=== PATIENT | female | born 1935 | race Caucasian/White ===

== ENCOUNTER → 2017-01-29 | Outpatient (CLI) | payer MEDICARE ==
[2017-01-29 15:19] LABS: Blood Urea Nitrogen 19 mg/dL (7-17); Non-African American GFR(MDRD) >60 (>60 ml/min/1.73 sqM)
--- NOTE | 2017-01-29 16:31 | CT ---
EXAMINATION TYPE: CT urogram wo/w con DATE OF EXAM: 01/29/2017 4:13 PM HISTORY: gross hematuria, hx of bladder ca CT DLP: 1209.8mGycm Automated Exposure Control for Dose Reduction was Utilized. CONTRAST: CT scan of the abdomen and pelvis is performed without oral and without and with IV Contrast, patient injected with 100 mL of Omnipaque 300. Urogram protocol with Three-D reconstructed images created on independent workstation and reviewed. COMPARISON: None. FINDINGS: KUB: There is focal cortical defect probable scar involving the lateral portion of the right kidney u pper to mid pole level on coronal image 91 series 20 for reference. There is additional lobulation yarbrough spected scarring involving lower pole right kidney. At this level there are 2-3 calcific foci identif ied suspicious for calculi versus dystrophic calcifications. No left-sided renal calculi are present. There is symmetric cortical medullary uptake and excretion from both kidneys with asymmetric mild ri ght-sided pyelocaliectasis. This is up to level 10 mm calculus in the proximal right ureter on axial image 36 series 8 and coronal image 80 series 17. There is fairly satisfactory opacification of bilat eral ureters without additional obstructing mass or calculus identified. No suspicious mass or wall t hickening is seen in the urinary bladder. LUNG BASES: Linear scarring or atelectasis centrally in the right lung base is present. There is patc hy atelectasis or consolidation abutting the major fissure in the lingula. LIVER/GB: Cholecystectomy clips are noted. PANCREAS: No significant abnormality is seen. SPLEEN: No significant abnormality is seen. ADRENALS: Slight low dense thickening to left adrenal glands felt to reflect benign hyperplasia. BOWEL: There are diverticula in the sigmoid colon. There is no CT evidence for acute diverticulitis. UTERUS/ADNEXA: No gross abnormality seen. LYMPH NODES: No greater than 1cm abdominal or pelvic lymph nodes are appreciated. OSSEOUS STRUCTURES: There is multilevel moderate to severe disc space narrowing with vacuum disc phen omenon. There is sclerosis and moderate to severe spurring at L1-L2 level. There is multilevel additi onal sclerosis and subchondral cystic change. There is grade 1 anterolisthesis of L4 on L5. There is hemangioma at T11 vertebral body level noted. OTHER: There is moderate calcified atherosclerotic change of the abdominal aorta extending into pelvi c branch vessels. IMPRESSION: There is 10 mm calculus in the proximal right ureter causing mild right-sided hydronephro sis but not delayed excretion from the right kidney.
== END | disposition home or self-care (01) ==
LOC: RADCTMAIN 14:36
PROVIDERS: ATTEND Urology
DX: N13.2 Hydronephrosis with renal and ureteral calculous obstruction (principal); Z85.51 Personal history of malignant neoplasm of bladder
CPT/HCPCS: 82565; 84520; 74178; 36415; 74400; Q9967

== ENCOUNTER → 2018-08-21 | Outpatient (CLI) | payer MEDICARE ==
--- NOTE | 2018-08-21 18:34 | CT ---
EXAMINATION TYPE: CT abdomen pelvis wo/w con DATE OF EXAM: 08/21/2018 HISTORY: Right lower quadrant pain, hematuria CT DLP: 1651mGycm Automated Exposure Control for Dose Reduction was Utilized. CONTRAST: CT scan of the abdomen and pelvis is performed prior to and after the administration of intravenous c ontrast, patient injected with 100 ml mL of Isovue 300. COMPARISON: 01/29/2017. FINDINGS: LUNG BASES: Chronic lingular atelectasis and/or scarring is seen. LIVER/GB: No significant abnormality is appreciated. Gallbladder surgically absent.01 PANCREAS: No significant abnormality is seen. SPLEEN: No splenomegaly. ADRENALS: Right adrenal gland is unremarkable. The previously seen slight thickening in the left adre nal gland remains and is again favored to represent benign adrenal gland hyperplasia. KIDNEYS: Retracted calcified scarring of the right lateral upper pole is redemonstrated. This is erickson lar to the prior 01/29/2017. Focal scarring of the lower pole is also seen with areas of full-thicknes s cortical thinning. Simple appearing stable left renal cyst emanates from the posterior lower pole. No new renal calculi are seen. There is chronic uroepithelial thickening of the right collecting system on series 6 image 32 through 50. Again there is pyelocaliectasis. However there is no evidence of obstruction as contrast is excr eted on delayed imaging. Fluid fluid level is seen on the last image of series 10 (47). This could re late to debris within the right collecting system. No new renal masses appreciated of either kidney. BOWEL: There is a small hiatal hernia present. UTERUS/ADNEXA: No gross abnormality seen. LYMPH NODES: No greater than 1cm abdominal or pelvic lymph nodes are appreciated. OSSEOUS STRUCTURES: There is multilevel malalignment of the lumbar spine with grade 1 retrolisthesis of L1 on L2 and L2 on L3 as well as grade 1 anterolisthesis of L4 on L5. Vertebral body hemangioma se en of T11 demonstrating the stripe sign. Multilevel endplate sclerosis is noted. No suspicious osseou s lesions are seen.. OTHER: Again there is moderate atherosclerosis of the abdominal aorta and its branches. IMPRESSION: 1. Chronic right uroepithelial thickening of the renal pelvis and proximal to mid ureter. Findings co uld be on the basis of inflammatory etiology and are unlikely to be of infectious etiology given pricing analyst nicity. With a history of urinary bladder cancer surveillance is recommended or direct visualization to exclude uroepithelial carcinoma. 2. Chronic multifocal scarring deformity of the right kidney with pyelocaliectasis. No new renal mass .
== END | disposition home or self-care (01) ==
LOC: RADCTMAIN 10:41
PROVIDERS: ATTEND Urology
DX: N13.30 Unspecified hydronephrosis (principal); N28.89 Other specified disorders of kidney and ureter; R31.9 Hematuria, unspecified; Z87.442 Personal history of urinary calculi; Z85.51 Personal history of malignant neoplasm of bladder; Z88.2 Allergy status to sulfonamides
CPT/HCPCS: 82565; 84520; 74178; 36415; Q9967

== ENCOUNTER → 2019-03-03 | Outpatient (CLI) | payer MEDICARE ==
--- NOTE | 2019-03-04 07:05 | CT ---
EXAMINATION TYPE: CT urogram wo/w con DATE OF EXAM: 03/03/2019 COMPARISON: 08/21/2018 and 01/29/2017 HISTORY: 83-year-old female gross hematuria X 3 weeks, history of stones TECHNIQUE: Contiguous axial scanning of the abdomen and pelvis performed without and with IV Contrast , patient injected with 100 mL of Isovue 300. Delayed images through the kidneys and bladder were obt ained. Coronal/sagittal reconstructions performed. 3-D reconstructions generated on a dedicated [employer] workstation. CT DLP: 1013.2 mGycm Automated exposure control for dose reduction was used. FINDINGS: Heart normal size without pericardial effusion. Partially visualized 6 mm right basilar pulmonary nodule, stable for just over a year compatible with a benign etiology. Bands of atelectasis at the peripheral left base. No pleural effusion. Small hiatal hernia. No focal liver lesion. Portal venous system is patent. Stable mild prominence of the bile ducts statu s post cholecystectomy. Stable mild diffuse thickening of the left adrenal gland without discrete nodularity. Right adrenal g land, spleen, and pancreas appear within normal limits. No dilated small bowel, free fluid, or free air. Some prominent fluid-filled small bowel loops in the lower abdomen and pelvis and some scattered liqu id stool within the colon. There may be mild circumferential wall thickening at the lower descending colon which may correlated clinically with patient's symptoms. No mesenteric or retroperitoneal lymphadenopathy. Moderate atherosclerotic calcifications within the abdominal aorta and iliac arteries. With regards to the left kidney, there is a stable exophytic 1.5 cm cortical lesion from the posterio r aspect that shows no significant postcontrast enhancement and was present previously compatible wit h a cyst. No suspicious renal lesion. No hydronephrosis and no abnormal filling defect within the col lecting system or left ureter. With regards to the right kidney, there is redemonstrated multifocal cortical defects in the upper an d lower poles. 5 mm nonobstructive right upper pole renal calculus is demonstrated. Similar overall mild right-sided pelvicaliectasis with mild urothelial thickening. There is only mini mal asymmetric delayed excretion of contrast from the right kidney. There is focal narrowing of a 1.6 cm long segment of the upper right ureter. Similar mild circumferen tial urothelial thickening in this region. The ureter immediately beyond this narrowing becomes sligh tly patulous before tapering to normal caliber. Remainder of the ureter has a normal appearance. The majority of the bladder except for the anterior most portion is opacified and shows no suspicious filling defect. Bladder partially distended. Uterus and right ovary are visualized. Left ovary not clearly delineated from adjacent bowel loops. No abnormal fluid collection in the pelvis or pelvic lymphadenopathy. Bones: Degenerative changes of the hips. Additional multilevel advanced degenerative changes througho ut the lumbar spine with multilevel spondylolistheses and Baastrup's disease. IMPRESSION: 1 REDEMONSTRATED MULTIFOCAL CORTICAL SCARRING WITHIN THE UPPER AND LOWER POLE OF THE RIGHT KIDNEY. 5 MM NONOBSTRUCTIVE RIGHT UPPER POLE RENAL CALCULUS. 2. SIMILAR MILD RIGHT-SIDED PELVICALIECTASIS WITH PERSISTENT MILD UROTHELIAL THICKENING OF THE COLLEC TING SYSTEM AND UPPERMOST RIGHT URETER LIKELY ON A CHRONIC POSTINFLAMMATORY BASIS. 3. A 1.6 CM LONG SEGMENT OF NARROWING INVOLVING THE UPPER RIGHT URETER SEEMS TO BE NEW. POSTINFLAMMAT ORY STRICTURE IS FAVORED OVER NEOPLASM GIVEN THE LACK OF ABNORMAL SOFT TISSUE THICKENING. FURTHER COR RELATION WITH URINE CYTOLOGY AND POSSIBLE DIRECT INSPECTION RECOMMENDED. 4. VERY SLIGHT ASYMMETRIC DELAY IN EXCRETION OF CONTRAST FROM THE RIGHT KIDNEY. THIS COULD BE SECONDA RY TO A DECREASE IN OVERALL FUNCTION OF THE RIGHT KIDNEY VERSUS A MILD RELATIVE OBSTRUCTION AT THE UR ETERAL NARROWING MENTIONED ABOVE. 5. MOST OF THE BLADDER IS OPACIFIED ON THE DELAYED PHASE AND SHOWS NO SUSPICIOUS LESION. ONLY A SMALL PORTION OF THE ANTERIOR WALL IS NOT ASSESSED. 6. SOME PROMINENT FLUID-FILLED SMALL BOWEL LOOPS IN THE LOWER ABDOMEN AND PELVIS AND SOME SCATTERED L IQUID STOOL WITHIN THE COLON. THERE MAY ALSO BE MILD WALL THICKENING IN THE MID TO LOWER DESCENDING C OLON. CORRELATE FOR ANY POTENTIAL SYMPTOMS OF ENTEROCOLITIS. 7. SMALL HIATAL HERNIA.
== END | disposition home or self-care (01) ==
LOC: RADCTMAIN 16:00
PROVIDERS: ATTEND Urology
DX: N20.0 Calculus of kidney (principal); K44.9 Diaphragmatic hernia without obstruction or gangrene; N28.89 Other specified disorders of kidney and ureter; K63.89 Other specified diseases of intestine; Z88.2 Allergy status to sulfonamides
CPT/HCPCS: 82565; 84520; 74178; 36415; 74400; Q9967

== ENCOUNTER 2020-05-17 08:41 | Inpatient (IN) | payer MEDICARE ==
[2020-05-17] MEDS ORDERED: SODIUM CHLORIDE 0.9% 500 ML 500 ML IV STA (09:28)
[2020-05-17] MEDS ORDERED: SODIUM CHLORIDE 0.9% 1,000 ML IV STA (09:28)
--- NOTE | 2020-05-17 09:40 | ED ---
Weakness HPI - General Chief complaint: Weakness Stated complaint: Weakness,aches Time Seen by Provider: 05/17/20 08:56 Source: patient, family, RN notes reviewed Mode of arrival: wheelchair Limitations: physical limitation - History of Present Illness Initial comments: This is a 85-year-old female history of a right ureteral neoplasm who was just seen by her doctor on the of this month which his stent placement and radiation treatment who states she started developing some nonspecific generalized weakness yesterday with a fever dizziness nausea. The temperature 100.4 and some shakes and generalized fatigue. She is a chronic smoker she stat es she has a smoker's cough but nothing new with respect to this no earache sore throat right now she states she's been drinking and eating less. No overt abdominal pain at this time no diarrhea. No dysuria no hematuria. She is on Macrobid that she's been on for the past 2 days with no change MD Complaint: generalized weakness - Related Data Home Medications Medication Instructions Recorded Confirmed HYDROcodone/APAP 7.5-325MG [[place] 1 tab PO BID 05/17/20 05/17/20 7.5-325] Ibuprofen [Motrin Ib] 200 mg PO DAILY PRN 05/17/20 05/17/20 Nitrofurantoin Macrocrystal 100 mg PO BID 05/17/20 05/17/20 [Nitrofurantoin] Potassium Chloride [Klor-Con 10] 10 meq PO DAILY 05/17/20 05/17/20 Sertraline HCl [Zoloft] 100 mg PO DAILY 05/17/20 05/17/20 Simvastatin [Zocor] 20 mg PO DAILY 05/17/20 05/17/20 Triamterene/Hydrochlorothiazid 1 tab PO DAILY 05/17/20 05/17/20 [Triamterene-Hctz 37.5-25 mg Tb] Allergies Allergy/AdvReac Type Severity Reaction Status Date / Time No Known Allergies Allergy Verified 05/17/20 10:50 Review of Systems ROS Statement: Those systems with pertinent positive or pertinent negative responses have been documented in the HPI. ROS Other: All systems not noted in ROS Statement are negative. Past Medical History Past Medical History: Dementia Additional Past Medical History / Comment(s): Ureter cancer, radiation tx, kidne y stones History of Any Multi-Drug Resistant Organisms: None Reported Past Surgical History: Cholecystectomy Past Psychological History: No Psychological Hx Reported Smoking Status: Current every day smoker Past Alcohol Use History: None Reported Past Drug Use History: None Reported General Exam - General Exam Comments Initial Comments: This is a well-developed well-nourished awake alert oriented 3 female Limitations: physical limitation General appearance: alert, in no apparent distress Head exam: Present: atraumatic, normocephalic, normal inspection Eye exam: Present: normal appearance, PERRL, EOMI. Absent: scleral icterus, conjunctival injection, periorbital swelling ENT exam: Present: mucous membranes dry Neck exam: Present: normal inspection. Absent: tenderness, meningismus, lymphadenopathy Respiratory exam: Present: decreased breath sounds. Absent: respiratory distress, wheezes, rales, rhonchi, stridor Cardiovascular Exam: Present: regular rate, normal rhythm, normal heart sounds. Absent: systolic murmur, diastolic murmur, rubs, gallop, clicks GI/Abdominal exam: Present: soft, normal bowel sounds. Absent: distended, tenderness, guarding, rebound, rigid Extremities exam: Present: normal inspection, full ROM, normal capillary refill. Absent: tenderness, pedal edema, joint swelling, calf tenderness Back exam: Present: normal inspection Neurological exam: Present: alert, oriented X3, CN II-XII intact Psychiatric exam: Present: normal affect, normal mood Skin exam: Present: warm, dry, intact, normal color. Absent: rash Course Vital Signs 05/17/20 05/17/20 05/17/20 08:46 08:51 09:51 Temperature 99 F Pulse Rate 93 79 Respiratory 18 18 18 Rate Blood Pressure 96/52 104/63 O2 Sat by Pulse 94 L 97 Oximetry 05/17/20 05/17/20 05/17/20 10:00 11:00 12:00 Temperature 97.9 F Pulse Rate 79 82 Respiratory 18 18 18 Rate Blood Pressure 104/63 111/57 O2 Sat by Pulse 97 97 97 Oximetry EKG Findings - EKG Results: EKG: interpreted by ROBERT, sinus rhythm (Sinus rhythm of 89. Interval 1:30 QRS duration 76 QT/QTC 388/472) Medical Decision Making - Medical Decision Making I did discuss findings with patient and her son was present. Patient does have evidence COPD exacerbation she is still a smoker she also has left lower lobe infiltrate. I did discuss case with Dr. Brown. Also Dr. Benitez will be notified of the admission. - Lab Data Result diagrams: 05/17/20 09:39 05/17/20 09:39 Lab Results 05/17/20 05/17/20 05/17/20 Range/Units 09:39 09:39 09:39 WBC 14.6 H (3.8-10.6) k/uL RBC 4.09 (3.80-5.40) m/uL Hgb 12.3 (11.4-16.0) gm/dL Hct 37.2 (34.0-46.0) % MCV 90.9 (80.0-100.0) fL MCH 30.0 (25.0-35.0) pg MCHC 33.0 (31.0-37.0) g/dL RDW 12.8 (11.5-15.5) % Plt Count 239 (150-450) k/uL Neutrophils % 92 % Lymphocytes % 1 % Monocytes % 5 % Eosinophils % 1 % Basophils % 1 % Neutrophils # 13.3 H (1.3-7.7) k/uL Lymphocytes # 0.1 L (1.0-4.8) k/uL Monocytes # 0.7 (0-1.0) k/uL Eosinophils # 0.1 (0-0.7) k/uL Basophils # 0.2 (0-0.2) k/uL PT 10.7 (9.0-12.0) sec INR 1.0 (<1.2) APTT 26.6 (22.0-30.0) sec Sodium 133 L (137-145) mmol/L Potassium 3.2 L (3.5-5.1) mmol/L Chloride 100 (98-107) mmol/L Carbon Dioxide 24 (22-30) mmol/L Anion Gap 9 mmol/L BUN 14 (7-17) mg/dL Creatinine 0.90 (0.52-1.04) mg/dL Est GFR (CKD-EPI)AfAm 67 (>60 ml/min/1.73 sqM) Est GFR (CKD-EPI)NonAf 58 (>60 ml/min/1.73 sqM) Glucose 123 H (74-99) mg/dL Plasma Lactic Acid [place] (0.7-2.0) mmol/L Calcium 8.8 (8.4-10.2) mg/dL Magnesium 1.8 (1.6-2.3) mg/dL Total Bilirubin 0.6 (0.2-1.3) mg/dL AST 22 (14-36) U/L ALT 13 (4-34) U/L Alkaline Phosphatase 82 (38-126) U/L Creatine Kinase 143 H (30-135) U/L Troponin I (0.000-0.034) ng/mL NT-Pro-B Natriuret Pep pg/mL Total Protein 6.5 (6.3-8.2) g/dL Albumin 4.0 (3.5-5.0) g/dL Urine Color Urine Appearance (Clear) Urine pH (5.0-8.0) Ur Specific [place] (1.001-1.035) Urine Protein (Negative) Urine Glucose (UA) (Negative) Urine Ketones (Negative) Urine Blood (Negative) Urine Nitrite (Negative) Urine Bilirubin (Negative) Urine Urobilinogen (<2.0) mg/dL Ur Leukocyte Esterase (Negative) Urine RBC (0-5) /hpf Urine WBC (0-5) /hpf Ur Squamous Epith Cells (0-4) /hpf Urine Bacteria (None) /hpf Urine Mucus (None) /hpf 05/17/20 05/17/20 05/17/20 Range/Units 09:39 09:39 09:39 WBC (3.8-10.6) k/uL RBC (3.80-5.40) m/uL Hgb (11.4-16.0) gm/dL Hct (34.0-46.0) % MCV (80.0-100.0) fL MCH (25.0-35.0) pg MCHC (31.0-37.0) g/dL RDW (11.5-15.5) % Plt Count (150-450) k/uL Neutrophils % % Lymphocytes % % Monocytes % % Eosinophils % % Basophils % % Neutrophils # (1.3-7.7) k/uL Lymphocytes # (1.0-4.8) k/uL Monocytes # (0-1.0) k/uL Eosinophils # (0-0.7) k/uL Basophils # (0-0.2) k/uL PT (9.0-12.0) sec INR (<1.2) APTT (22.0-30.0) sec Sodium (137-145) mmol/L Potassium (3.5-5.1) mmol/L Chloride (98-107) mmol/L Carbon Dioxide (22-30) mmol/L Anion Gap mmol/L BUN (7-17) mg/dL Creatinine (0.52-1.04) mg/dL Est GFR (CKD-EPI)AfAm (>60 ml/min/1.73 sqM) Est GFR (CKD-EPI)NonAf (>60 ml/min/1.73 sqM) Glucose (74-99) mg/dL Plasma Lactic Acid [place] 1.0 (0.7-2.0) mmol/L Calcium (8.4-10.2) mg/dL Magnesium (1.6-2.3) mg/dL Total Bilirubin (0.2-1.3) mg/dL AST (14-36) U/L ALT (4-34) U/L Alkaline Phosphatase (38-126) U/L Creatine Kinase (30-135) U/L Troponin I 0.024 (0.000-0.034) ng/mL NT-Pro-B Natriuret Pep 872 pg/mL Total Protein (6.3-8.2) g/dL Albumin (3.5-5.0) g/dL Urine Color Urine Appearance (Clear) Urine pH (5.0-8.0) Ur Specific [place] (1.001-1.035) Urine Protein (Negative) Urine Glucose (UA) (Negative) Urine Ketones (Negative) Urine Blood (Negative) Urine Nitrite (Negative) Urine Bilirubin (Negative) Urine Urobilinogen (<2.0) mg/dL Ur Leukocyte Esterase (Negative) Urine RBC (0-5) /hpf Urine WBC (0-5) /hpf Ur Squamous Epith Cells (0-4) /hpf Urine Bacteria (None) /hpf Urine Mucus (None) /hpf 05/17/20 Range/Units 09:46 WBC (3.8-10.6) k/uL RBC (3.80-5.40) m/uL Hgb (11.4-16.0) gm/dL Hct (34.0-46.0) % MCV (80.0-100.0) fL MCH (25.0-35.0) pg MCHC (31.0-37.0) g/dL RDW (11.5-15.5) % Plt Count (150-450) k/uL Neutrophils % % Lymphocytes % % Monocytes % % Eosinophils % % Basophils % % Neutrophils # (1.3-7.7) k/uL Lymphocytes # (1.0-4.8) k/uL Monocytes # (0-1.0) k/uL Eosinophils # (0-0.7) k/uL Basophils # (0-0.2) k/uL PT (9.0-12.0) sec INR (<1.2) APTT (22.0-30.0) sec Sodium (137-145) mmol/L Potassium (3.5-5.1) mmol/L Chloride (98-107) mmol/L Carbon Dioxide (22-30) mmol/L Anion Gap mmol/L BUN (7-17) mg/dL Creatinine (0.52-1.04) mg/dL Est GFR (CKD-EPI)AfAm (>60 ml/min/1.73 sqM) Est GFR (CKD-EPI)NonAf (>60 ml/min/1.73 sqM) Glucose (74-99) mg/dL Plasma Lactic Acid [place] (0.7-2.0) mmol/L Calcium (8.4-10.2) mg/dL Magnesium (1.6-2.3) mg/dL Total Bilirubin (0.2-1.3) mg/dL AST (14-36) U/L ALT (4-34) U/L Alkaline Phosphatase (38-126) U/L Creatine Kinase (30-135) U/L Troponin I (0.000-0.034) ng/mL NT-Pro-B Natriuret Pep pg/mL Total Protein (6.3-8.2) g/dL Albumin (3.5-5.0) g/dL Urine Color Yellow Urine Appearance Clear (Clear) Urine pH 6.0 (5.0-8.0) Ur Specific [place] 1.018 (1.001-1.035) Urine Protein 1+ H (Negative) Urine Glucose (UA) Negative (Negative) Urine Ketones Negative (Negative) Urine Blood Moderate H (Negative) Urine Nitrite Negative (Negative) Urine Bilirubin Negative (Negative) Urine Urobilinogen <2.0 (<2.0) mg/dL Ur Leukocyte Esterase Large H (Negative) Urine RBC 95 H (0-5) /hpf Urine WBC 65 H (0-5) /hpf Ur Squamous Epith Cells 1 (0-4) /hpf Urine Bacteria Rare H (None) /hpf Urine Mucus Few H (None) /hpf - Radiology Data Radiology results: report reviewed (I did review the imaging and report evidence a left lower lobe pneumonia), image reviewed Disposition Clinical Impression: Left lower lobe pneumonia, COPD exacerbation, Smoking, Primary cancer of right ureter Disposition: ADMITTED IP TO THIS HOSP Condition: Fair Referrals: Jane Bartlett MD [Primary Care Provider] - 1-2 days
[2020-05-17 09:57] LABS: Basophils # (A) 0.2 k/uL (0-0.2); Basophils % (A) 1 %; Eosinophils # (A) 0.1 k/uL (0-0.7); Eosinophils % (A) 1 %; HCT 37.2 % (34.0-46.0); HGB 12.3 gm/dL (11.4-16.0); Lymphocytes # (A) 0.1 k/uL (1.0-4.8); Lymphocytes % (A) 1 %; MCV 90.9 fL (80.0-100.0); Mean Platelet Volume 7.4; Monocytes # (A) 0.7 k/uL (0-1.0); Monocytes % (A) 5 %; Neutrophils # (A) 13.3 k/uL (1.3-7.7); Neutrophils % (A) 92 %; Platelet Count 239 k/uL (150-450); RBC 4.09 m/uL (3.80-5.40); RDW 12.8 % (11.5-15.5); WBC 14.6 k/uL (3.8-10.6)
[2020-05-17 10:01] LABS: Appearance,Urine Clear (Clear); Bacteria,Urine Rare /hpf; Bilirubin,Urine Negative (Negative); Blood,Urine Moderate (Negative); Color,Urine Yellow; Glucose,Urine (UA) Negative (Negative); Ketones,Urine Negative (Negative); Leukocyte Esterase,Urine Large (Negative); Mucus,Urine Few /hpf; Nitrite,Urine Negative (Negative); Protein,Urine 1+ (Negative); RBC,Urine 95 /hpf (0-5); Specific Gravity,Urine 1.018 (1.001-1.035); Squamous Epithelial Cell,Urine 1 /hpf (0-4); Urobilinogen,Urine <2.0 mg/dL (<2.0); WBC,Urine 65 /hpf (0-5)
[2020-05-17 10:06] LABS: Calcium 8.8 mg/dL (8.4-10.2); Magnesium 1.8 mg/dL (1.6-2.3); Potassium 3.2 mmol/L (3.5-5.1); Total Bilirubin 0.6 mg/dL (0.2-1.3); Total Protein 6.5 g/dL (6.3-8.2)
[2020-05-17 10:10] LABS: Partial Thromboplastin Time 26.6 sec (22.0-30.0); Prothrombin Time 10.7 sec (9.0-12.0)
--- NOTE | 2020-05-17 10:21 | XR ---
EXAMINATION TYPE: XR chest 2V DATE OF EXAM: 05/17/2020 COMPARISON: Chest x-ray 11/29/2011 HISTORY: Weakness and fever, abnormal chest x-ray TECHNIQUE: Frontal and lateral views of the chest are obtained. FINDINGS: There is a wedge-shaped area of increased attenuation present in the lingula. Prominent mike ng volumes suggest underlying COPD. Interstitium is increased. Aorta is dense. Heart is stable. Pulmo nary vascularity and adrienne not significantly changed accounting for differences in technique. No evide nt pneumothorax or pleural effusion. IMPRESSION: Correlate for atelectasis versus pneumonia, follow-up to resolution is recommended.
[2020-05-17] MEDS ORDERED: PNEUMONIA PROTOCOL UTILIZED 1 EACH MISC PO PRN (12:28)
[2020-05-17] MEDS ORDERED: AZITHROMYCIN 500 MG in SODIUM CHLORIDE 0.9% 250 ML IVPB STA (12:28)
[2020-05-17] MEDS ORDERED: IBUPROFEN 200 MG TAB PO PRN (12:35)
[2020-05-17] MEDS ORDERED: PNEUMOCOCCAL VACC-PNEUMOVAX 23 25 MCG/0.5 ML VIAL IM ONE (14:03)
[2020-05-17] MEDS: IPRATROPIUM-ALBUTEROL 3 ML NEB INHALATION SCH ×2 (15:13→19:58)
[2020-05-17] MEDS ORDERED: HYDROcodone/APAP 7.5-325MG 1 EACH TAB PO PRN (21:00)
[2020-05-17] MEDS ORDERED: IPRATROPIUM-ALBUTEROL 3 ML NEB INHALATION PRN (21:01)
[2020-05-18 07:27] LABS: Calcium 8.2 mg/dL (8.4-10.2); Potassium 3.7 mmol/L (3.5-5.1)
[2020-05-18 07:46] LABS: Basophils % (A) 0 %; Eosinophils # (A) 0.3 k/uL (0-0.7); Eosinophils % (A) 4 %; HCT 35.1 % (34.0-46.0); HGB 11.7 gm/dL (11.4-16.0); Lymphocytes # (A) 0.5 k/uL (1.0-4.8); Lymphocytes % (A) 8 %; MCHC 33.3 g/dL (31.0-37.0); MCV 93.2 fL (80.0-100.0); Mean Platelet Volume 7.7; Monocytes # (A) 0.5 k/uL (0-1.0); Monocytes % (A) 8 %; Neutrophils # (A) 5.3 k/uL (1.3-7.7); Neutrophils % (A) 78 %; Platelet Count 202 k/uL (150-450); RBC 3.77 m/uL (3.80-5.40); RDW 12.8 % (11.5-15.5); WBC 6.7 k/uL (3.8-10.6)
[2020-05-18] MEDS: IPRATROPIUM-ALBUTEROL 3 ML NEB INHALATION SCH ×4 (07:54→20:24)
[2020-05-18] MEDS: HEPARIN SODIUM,PORCINE 5,000 UNIT/ML 1 ML VIAL SQ SCH ×2 (08:12→16:19)
--- NOTE | 2020-05-18 09:25 | XR ---
EXAMINATION TYPE: XR chest 2V DATE OF EXAM: 05/18/2020 CLINICAL HISTORY: Pneumonia TECHNIQUE: Frontal and lateral views of the chest are obtained. COMPARISON: Chest radiograph 05/17/2020 FINDINGS: The cardiomediastinal silhouette is within normal limits for size. There is interstitial c oarsened markings redemonstrated. There is a patchy area of opacity region of the lingula not signifi cantly changed. No pleural effusion or pneumothorax seen. The osseous structures are intact. IMPRESSION: Unchanged patchy opacity in the region of the lingula.
[2020-05-18] MEDS: ATORVASTATIN 10 MG TAB PO SCH (10:42)
[2020-05-18] MEDS: SERTRALINE 100 MG TAB PO SCH (10:42)
[2020-05-18] MEDS: POTASSIUM CHLORIDE ER 10 MEQ TAB.ER.PRT PO SCH (10:42)
--- NOTE | 2020-05-18 10:49 | P.HPIM ---
History of Present Illness H&P Date: 05/17/20 Chief Complaint: generalized weakness and fatigue Patient is a 85-year-old female with a known history of dementia, hearing disorder/deafness, hypertension, hyperlipidemia and recent right ureteral neoplasm with stenting/radiation treatments last 1 on 05/08/2020 and nephroli thiasis as well as currently everyday smoker presents to the hospital with generalized weakness along with fever and dizziness and nausea since yesterday. T-max was 100.1 and patient was having chills and generalized fatigue. Denied any complaints of chest pain. Patient does have chronic cough without any sputum production or recent change in frequency. Patient is currently everyday smoker. Denied any abdominal pain. No dysuria or hematuria. Patient has been taking Macrobid for the past 2 days without improvement in symptoms. Chest x-ray showed correlate for atelectasis versus pneumonia. Follow-up to resolution is recommended. EKG showed normal sinus rhythm Laboratory data WBC 14.6, hemoglobin 12.3, platelets 239 Sodium 133, potassium 3.2, chloride 100, BUN 14 and creatinine 0.9 CK 143 troponin 0 0.024 and BNP level is 872 Urinalysis showed moderate blood large leukoesterase with WBCs 9 6500 RBCs 95 squamous epithelial cells 1 Patient was tachycardic on admission with T-max of 99.7 at admission. Review of Systems Constitutional: patient does have generalized weakness, fatigue, fever and chills at home.s. Abdomen: Patient denied nausea vomiting and diarrhea and abdominal pain. Cardiovascular: Patient denies any chest pain or short of breath no palpitations. Respiratory: patient denied any cough is from production. No shortness of breath Neurologic: Patient denied any numbness or tingling headache. Musculoskeletal: Patient denies any complaints of joint swelling or deformity. Skin: Negative Psychiatric: Negative Endocrine: No heat or cold intolerance. No recent weight gain. Genitourinary: No dysuria or hematuria. All other 14 point ROS negative except the above Past Medical History Past Medical History: Dementia, Hearing Disorder / Deafness, Hyperlipidemia, Hy pertension Additional Past Medical History / Comment(s): R ureteral neoplasm with stentings/radiation treatments with last radiation tx 05/08/20, nephrolithiasis with surgery and pt passed on her own, nephritis, UTIs, chronic low back pain, torn R rotator cuff with limited ROM, bilateral tinnitis, pt/son do not recall diagnosis of COPD/bronchitis/pneumonia as documented in old medical record. History of Any Multi-Drug Resistant Organisms: None Reported Past Surgical History: Appendectomy Additional Past Surgical History / Comment(s): Cystoscopies/R ureteral stents, lithotripsy, bilateral cataract removals. Past Anesthesia/Blood Transfusion Reactions: Postoperative Nausea & Vomiting (PONV) Additional Past Anesthesia/Blood Transfusion Reaction / Comment(s): Post op nausea and pain Smoking Status: Current every day smoker - Past Family History Father Family Medical History: Coronary Artery Disease (CAD), CVA/TIA Mother Family Medical History: No Reported History Additional Family Medical History / Comment(s): Mother was healthy and lived until 89yrs. Medications and Allergies Home Medications Medication Instructions Recorded Confirmed Type HYDROcodone/APAP 7.5-325MG [[place] 1 tab PO BID 05/17/20 05/17/20 History 7.5-325] Ibuprofen [Motrin Ib] 200 mg PO DAILY PRN 05/17/20 05/17/20 History Nitrofurantoin Macrocrystal 100 mg PO BID 05/17/20 05/17/20 History [Nitrofurantoin] Potassium Chloride [Klor-Con 10] 10 meq PO DAILY 05/17/20 05/17/20 History Sertraline HCl [Zoloft] 100 mg PO DAILY 05/17/20 05/17/20 History Simvastatin [Zocor] 20 mg PO DAILY 05/17/20 05/17/20 History Triamterene/Hydrochlorothiazid 1 tab PO DAILY 05/17/20 05/17/20 History [Triamterene-Hctz 37.5-25 mg Tb] Allergies Allergy/AdvReac Type Severity Reaction Status Date / Time No Known Allergies Allergy Verified 05/17/20 10:50 Physical Exam Vitals: Vital Signs Temp Pulse Pulse Resp BP BP Pulse Ox 05/17/20 15:49 16 05/17/20 15:25 72 16 05/17/20 15:17 68 16 95 05/17/20 14:25 85 18 05/17/20 14:15 99.7 F H 85 18 105/49 96 05/17/20 13:00 80 18 132/62 97 05/17/20 12:00 97.9 F 82 18 111/57 97 05/17/20 11:00 18 97 05/17/20 10:00 79 18 104/63 97 05/17/20 09:51 79 18 104/63 97 05/17/20 08:51 18 05/17/20 08:46 99 F 93 18 96/52 94 L Intake and Output 05/17/20 05/17/20 05/17/20 06:59 14:59 22:59 Intake Total 1830 Balance 1830 Intake: Intake, IV Titration 1350 Amount Azithromycin 500 mg In 250 Sodium Chloride 0.9% 250 ml @ 250 mls/hr IVPB ONCE [facility] Rx#:[id number] Sodium Chloride 0.9% 1, 600 000 ml @ 130 mls/hr IV . Q7H42M [facility] Rx#:[id number] Sodium Chloride 0.9% 500 500 ml 500 ml @ 999 mls/hr IV .Q31M [facility] Rx#:[id number] Oral 480 Other: Voiding Method Bedside Commode Bedside Commode # Voids 3 Weight 56.699 kg PHYSICAL EXAMINATION: Patient is lying in the bed comfortably, no acute distress, awake alert and oriented.lethargic and weak.. HEENT: Normocephalic. Neck is supple. Pupils reactive. Nostrils clear. Oral cavity is moist. Ears reveal no drainage. Neck reveals no JVD, carotid bruits, or thyromegaly. CHEST EXAMINATION: Trachea is central. Symmetrical expansion.bibasilar diminished air entry. No wheezing. Lung fraser clear to auscultation and percussion. CARDIAC: Normal S1, S2 with no gallops. No murmurs ABDOMEN: Soft. Bowel sounds normal. No organomegaly. No abdominal bruits. Extremities: reveal no edema. No clubbing or cyanosis Neurologically awake, alert, oriented x3 with well-coordinated movements. No focal deficits noted Skin: No rash or skin lesions. Psychiatric: Coperative. Nonsuicidal Musculoskeletal: No joint swelling or deformity. Normal range of motion. Results CBC & Chem 7: 05/18/20 06:19 05/18/20 06:19 Labs: Abnormal Lab Results - Last 24 Hours (Table) 05/17/20 05/17/20 05/17/20 Range/Units 09:39 09:39 09:46 WBC 14.6 H (3.8-10.6) k/uL Neutrophils # 13.3 H (1.3-7.7) k/uL Lymphocytes # 0.1 L (1.0-4.8) k/uL Sodium 133 L (137-145) mmol/L Potassium 3.2 L (3.5-5.1) mmol/L Glucose 123 H (74-99) mg/dL Creatine Kinase 143 H (30-135) U/L Urine Protein 1+ H (Negative) Urine Blood Moderate H (Negative) Ur Leukocyte Esterase Large H (Negative) Urine RBC 95 H (0-5) /hpf Urine WBC 65 H (0-5) /hpf Urine Bacteria Rare H (None) /hpf Urine Mucus Few H (None) /hpf Thrombosis Risk Factor Assmnt - DVT/VTE Prophylaxis DVT/VTE Prophylaxis: Pharmacologic Prophylaxis ordered - Choose All That Apply Any of the Below Risk Factors Present?: Yes Each Factor Represents 1 point: Abnormal pulmonary function (COPD), Sepsis (< 1month) Other Risk Factors: Yes Each Risk Factor Represents 2 Points: Malignancy Each Risk Factor Represents 3 Points: Age 75 years or older Other congenital or acquired thrombophilia - If yes, enter type in comment: No Thrombosis Risk Factor Assessment Total Risk Factor Score: 7 Thrombosis Risk Factor Assessment Level: High Risk Assessment and Plan Assessment: Acute urinary tract infection with history of recent right ureteral stenting. Possible lingular pneumonia Sepsis secondary to urinary tract infection Failed outpatient therapy with Macrobid Right ureteral neoplasm with stenting/radiation treatments last radiation on 05/08/2020 Hypokalemia and hypovolemic hyponatremia Ongoing nicotine addiction Generalized weakness and fatigue secondary to dehydration and volume depletion and infection Hearing disorder/deafness Hypertension Hyperlipidemia Dementia DVT prophylaxis with heparin subcu Plan: Patient will be continued on antibiotic in the form of ceftriaxone and azithromycin. Gentle hydration. Follow-up urine cultures and blood cultures continue home medications and symptomatic management. Follow-up repeat CBC and BMP tomorrow. Smoking patient has been counseled. Further recommendations b ased on the clinical course. Time with Patient: Greater than 30
[2020-05-18] MEDS: BENZOCAINE/MENTHOL LOZENG 1 EACH LOZENGE MUCOUS MEM PRN (11:44)
[2020-05-18] MEDS: AZITHROMYCIN 500 MG TAB PO SCH (11:44)
[2020-05-18] MEDS: TRIAMTERENE-HCTZ 37.5-25MG 1 EACH TAB PO SCH (11:44)
--- NOTE | 2020-05-19 00:08 | P.PN ---
Subjective Progress Note Date: 05/18/20 Principal diagnosis: Acute urinary tract infection Possible lingular pneumonia Generalized weakness and fatigue Patient is a 85-year-old female with a known history of dementia, hearing disorder/deafness, hypertension, hyperlipidemia and recent right ureteral neoplasm with stenting/radiation treatments last 1 on 05/08/2020 and nephrolithiasis as well as currently everyday smoker presents to the hospital with generalized weakness along with fever and dizziness and nausea since yesterday. T-max was 100.1 and patient was having chills and generalized fa tigue. Denied any complaints of chest pain. Patient does have chronic cough without any sputum production or recent change in frequency. Patient is currently everyday smoker. Denied any abdominal pain. No dysuria or hematuria. Patient has been taking Macrobid for the past 2 days without improvement in symptoms. Chest x-ray showed correlate for atelectasis versus pneumonia. Follow-up to resolution is recommended. EKG showed normal sinus rhythm Laboratory data WBC 14.6, hemoglobin 12.3, platelets 239 Sodium 133, potassium 3.2, chloride 100, BUN 14 and creatinine 0.9 CK 143 troponin 0 0.024 and BNP level is 872 Urinalysis showed moderate blood large leukoesterase with WBCs 9 6500 RBCs 95 squamous epithelial cells 1 Patient was tachycardic on admission with T-max of 99.7 at admission. 05/18/2020 Patient is currently sitting in the chair comfortably. No complaints of chest pain or shortness of breath. Currently tolerating oral diet. Urine culture is pending. WBC count is 6.7, hemoglobin 11.7 and potassium level is 3.7. Discussed with her son at bedside in detail. Current medications reviewed. Objective - Vital Signs Vital signs: Vital Signs Temp 98.4 F 05/18/20 15:36 Pulse 73 05/18/20 20:36 Resp 20 05/18/20 15:36 BP 109/55 05/18/20 15:36 Pulse Ox 95 05/18/20 15:36 Intake & Output 05/18/20 05/18/20 05/19/20 06:59 18:59 06:59 Intake Total 1880 450 Balance 1880 450 Intake: IV 50 cefTRIAXone 1 gm In 50 Sodium Chloride 0.9% 50 ml @ 100 mls/hr IVPB Q24HR [facility] Rx#:[id number] Intake, IV Titration 1480 400 Amount Sodium Chloride 0.9% 1, 1480 400 000 ml @ 130 mls/hr IV . Q7H42M [facility] Rx#:[id number] Oral 400 Other: Voiding Method Bedside Commode # Voids 1 - Exam PHYSICAL EXAMINATION: Patient is lying in the bed comfortably, no acute distress, awake alert and oriented.lethargic and weak.. HEENT: Normocephalic. Neck is supple. Pupils reactive. Nostrils clear. Oral cavity is moist. Ears reveal no drainage. Neck reveals no JVD, carotid bruits, or thyromegaly. CHEST EXAMINATION: Trachea is central. Symmetrical expansion.bibasilar di minished air entry. No wheezing. Lung fraser clear to auscultation and percussion. CARDIAC: Normal S1, S2 with no gallops. No murmurs ABDOMEN: Soft. Bowel sounds normal. No organomegaly. No abdominal bruits. Extremities: reveal no edema. No clubbing or cyanosis Neurologically awake, alert, oriented x3 with well-coordinated movements. No focal deficits noted Skin: No rash or skin lesions. Psychiatric: Coperative. Nonsuicidal Musculoskeletal: No joint swelling or deformity. Normal range of motion. - Labs CBC & Chem 7: 05/18/20 06:19 05/18/20 06:19 Labs: Abnormal Lab Results - Last 24 Hours (Table) 05/18/20 05/18/20 Range/Units 06:19 06:19 RBC 3.77 L (3.80-5.40) m/uL Lymphocytes # 0.5 L (1.0-4.8) k/uL Calcium 8.2 L (8.4-10.2) mg/dL Microbiology - Last 24 Hours (Table) 05/17/20 09:46 Urine Culture - Final Urine,Voided 05/17/20 09:39 Blood Culture - Preliminary Blood No Growth after 24 hours Assessment and Plan Assessment: Acute urinary tract infection with history of recent right ureteral stenting. Possible lingular pneumonia Sepsis secondary to urinary tract infection Failed outpatient therapy with Macrobid Right ureteral neoplasm with stenting/radiation treatments last radiation on 05/08/2020 Hypokalemia and hypovolemic hyponatremia Ongoing nicotine addiction Generalized weakness and fatigue secondary to dehydration and volume depletion and infection Hearing disorder/deafness Hypertension Hyperlipidemia Dementia DVT prophylaxis with heparin subcu Plan: Patient will be continued on antibiotic in the form of ceftriaxone and azithromycin. Incentive spirometry. Titrate oxygen to room air Gentle hydration. Follow-up urine cultures and blood cultures continue home medications and symptomatic management. Smoking patient has been counseled. Further recommendations based on the clinical course. Time with Patient: Greater than 30
[2020-05-19] MEDS: HEPARIN SODIUM,PORCINE 5,000 UNIT/ML 1 ML VIAL SQ SCH ×4 (00:42→23:11)
[2020-05-19] MEDS: BENZOCAINE/MENTHOL LOZENG 1 EACH LOZENGE MUCOUS MEM PRN ×3 (02:15→19:47)
[2020-05-19] MEDS: ATORVASTATIN 10 MG TAB PO SCH (07:43)
[2020-05-19] MEDS: TRIAMTERENE-HCTZ 37.5-25MG 1 EACH TAB PO SCH (07:43)
[2020-05-19] MEDS: SERTRALINE 100 MG TAB PO SCH (07:43)
[2020-05-19] MEDS: AZITHROMYCIN 500 MG TAB PO SCH (07:43)
[2020-05-19] MEDS: POTASSIUM CHLORIDE ER 10 MEQ TAB.ER.PRT PO SCH (07:43)
[2020-05-19] MEDS: IPRATROPIUM-ALBUTEROL 3 ML NEB INHALATION SCH ×4 (08:02→18:52)
[2020-05-19 14:51] VITALS: RESP 16
[2020-05-19] MEDS ORDERED: MELATONIN 5 MG TABLET PO SCH (21:00)
[2020-05-20 04:26] VITALS: TEMP 98.3
[2020-05-20] MEDS: BENZOCAINE/MENTHOL LOZENG 1 EACH LOZENGE MUCOUS MEM PRN (06:15)
[2020-05-20] MEDS: POTASSIUM CHLORIDE ER 10 MEQ TAB.ER.PRT PO SCH (08:00)
[2020-05-20] MEDS: SERTRALINE 100 MG TAB PO SCH (08:00)
[2020-05-20] MEDS: AZITHROMYCIN 500 MG TAB PO SCH (08:00)
[2020-05-20] MEDS: ATORVASTATIN 10 MG TAB PO SCH (08:00)
[2020-05-20] MEDS: TRIAMTERENE-HCTZ 37.5-25MG 1 EACH TAB PO SCH (08:00)
[2020-05-20] MEDS: HEPARIN SODIUM,PORCINE 5,000 UNIT/ML 1 ML VIAL SQ SCH (08:00)
[2020-05-20 08:01] VITALS: BP 112/68
[2020-05-20] MEDS: IPRATROPIUM-ALBUTEROL 3 ML NEB INHALATION SCH ×2 (08:09→11:15)
[2020-05-20] MEDS ORDERED: guaiFENesin 600 MG TABLET.ER PO PRN (09:12)
[2020-05-20 11:26] VITALS: PULSE 77
== END 2020-05-20 13:44 | disposition home health service (06) | DRG 871 ==
LOC: SUPCPDRO 08:41 → EC 08:41 → 4SSUR 12:28
PROVIDERS: ADMIT Internal Medicine; ATTEND Internal Medicine
DX: A41.9 Sepsis, unspecified organism (principal); J18.9 Pneumonia, unspecified organism; N39.0 Urinary tract infection, site not specified; J44.0 Chronic obstructive pulmonary disease with (acute) lower respiratory infection; J44.1 Chronic obstructive pulmonary disease with (acute) exacerbation; E87.1 Hypo-osmolality and hyponatremia; C66.1 Malignant neoplasm of right ureter; I10 Essential (primary) hypertension; H91.90 Unspecified hearing loss, unspecified ear; F17.210 Nicotine dependence, cigarettes, uncomplicated; E87.6 Hypokalemia; F03.90 Unspecified dementia, unspecified severity, without behavioral disturbance, psychotic disturbance, mood disturbance, and anxiety; Z20.828 Contact with and (suspected) exposure to other viral communicable diseases; E78.5 Hyperlipidemia, unspecified; E86.0 Dehydration; E86.1 Hypovolemia; Z79.899 Other long term (current) drug therapy; Z82.49 Family history of ischemic heart disease and other diseases of the circulatory system; Z82.3 Family history of stroke; Z87.442 Personal history of urinary calculi; Z92.3 Personal history of irradiation; R31.9 Hematuria, unspecified; Z79.891 Long term (current) use of opiate analgesic; Z87.440 Personal history of urinary (tract) infections; M54.5 Low back pain; G89.29 Other chronic pain; Z98.42 Cataract extraction status, left eye; Z98.41 Cataract extraction status, right eye
CPT/HCPCS: 36415; 71046; 80048; 80053; 81001; 82550; 83605; 83735; 83880; 84484; 85025; 85610; 85730; 87040; 87086; 90732; 93005; 94640; 94760; 96360; 96361; 99285

== ENCOUNTER 2021-03-16 19:00 | Emergency (ER) | payer MEDICARE ==
[2021-03-16 19:08] VITALS: TEMP 97.7
[2021-03-16] MEDS ORDERED: SODIUM CHLORIDE 0.9% 1,000 ML IV STA (19:24)
[2021-03-16] MEDS ORDERED: MORPHINE SULFATE 4 MG/ML SYRINGE IV STA (19:24)
[2021-03-16] MEDS ORDERED: ONDANSETRON 4 MG/2 ML VIAL IVP STA (19:24)
[2021-03-16 19:36] LABS: Basophils % (A) 0 %; Eosinophils # (A) 0.1 k/uL (0-0.7); Eosinophils % (A) 1 %; HCT 37.5 % (34.0-46.0); Lymphocytes # (A) 1.4 k/uL (1.0-4.8); Lymphocytes % (A) 17 %; MCH 31.3 pg (25.0-35.0); MCHC 34.8 g/dL (31.0-37.0); Monocytes # (A) 0.4 k/uL (0-1.0); Monocytes % (A) 5 %; Neutrophils # (A) 6.2 k/uL (1.3-7.7); Neutrophils % (A) 76 %; Platelet Count 196 k/uL (150-450); RBC 4.16 m/uL (3.80-5.40); WBC 8.2 k/uL (3.8-10.6)
[2021-03-16 19:44] LABS: Albumin 4.1 g/dL (3.5-5.0); Calcium 9.1 mg/dL (8.4-10.2); Total Bilirubin 0.3 mg/dL (0.2-1.3); Total Protein 6.4 g/dL (6.3-8.2)
--- NOTE | 2021-03-16 19:57 | ED ---
Abdominal Pain HPI - General Chief Complaint: Abdominal Pain Stated Complaint: Groin pain Time Seen by Provider: 03/16/21 19:19 Source: patient, EMS, RN notes reviewed Mode of arrival: EMS Limitations: no limitations - History of Present Illness Initial Comments: Patient is a 85-year-old female that presents to emergency room complaining of right-sided abdominal pain starting after a cystoscopy procedure today. She notes that the pain is right middle quadrant. She notes the pain started shortly after her cystoscopy. She notes that she's been having pain for approximately an hour. She notes that she is visiting 10 out of 10 pain and asking for pain medication the pain go away. She stated that they drained her bladder during the procedure, she does have the sensation to go the bathroom but is not sure if she will be given a urine sample. She denied any chest pain shortness of breath headache nausea vomiting diarrhea constipation fever fatigue chills hematuria dysuria. - Related Data Home Medications Medication Instructions Recorded Confirmed HYDROcodone/APAP 7.5-325MG [[place] 1 tab PO BID 05/17/20 03/16/21 7.5-325] Potassium Chloride [Klor-Con 10] 10 meq PO DAILY 05/17/20 03/16/21 Sertraline HCl [Zoloft] 100 mg PO DAILY 05/17/20 03/16/21 Simvastatin [Zocor] 20 mg PO DAILY 05/17/20 03/16/21 Triamterene/Hydrochlorothiazid 1 tab PO DAILY 05/17/20 03/16/21 [Triamterene-Hctz 37.5-25 mg Tb] Allergies Allergy/AdvReac Type Severity Reaction Status Date / Time No Known Allergies Allergy Verified 03/16/21 19:39 Review of Systems ROS Statement: Those systems with pertinent positive or pertinent negative responses have been documented in the HPI. ROS Other: All systems not noted in ROS Statement are negative. 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 History of Any Multi-Drug Resistant Organisms: None Reported Past Surgical History: Appendectomy Additional Past Surgical History / Comment(s): Cystoscopies/R ureteral stents, lithotripsy, bilateral cataract removals. Past Anesthesia/Blood Transfusion Reactions: Postoperative Nausea & Vomiting (PONV) Additional Past Anesthesia/Blood Transfusion Reaction / Comment(s): Post op naus ea and pain Past Psychological History: Anxiety Smoking Status: Current every day smoker, Former smoker Past Alcohol Use History: None Reported Past Drug Use History: None Reported - Past Family History Father Family Medical History: Coronary Artery Disease (CAD), CVA/TIA Mother Family Medical History: No Reported History Additional Family Medical History / Comment(s): Mother was healthy and lived until 89yrs. General Exam Limitations: no limitations General appearance: alert, in no apparent distress, in distress (Due to pain) Head exam: Present: atraumatic, normocephalic, normal inspection Eye exam: Present: normal appearance, PERRL, EOMI. Absent: scleral icterus, conjunctival injection, periorbital swelling Neck exam: Present: normal inspection Respiratory exam: Present: normal lung sounds bilaterally. Absent: respiratory distress, wheezes, rales, rhonchi, stridor Cardiovascular Exam: Present: regular rate, normal rhythm, normal heart sounds. Absent: systolic murmur, diastolic murmur, rubs, gallop, clicks GI/Abdominal exam: Present: soft, tenderness (Right middle quadrant), normal bowel sounds. Absent: distended, guarding, rebound, rigid Extremities exam: Present: normal inspection, full ROM, normal capillary refill. Absent: tenderness, pedal edema, joint swelling, calf tenderness Neurological exam: Present: alert, oriented X3, CN II-XII intact Psychiatric exam: Present: normal affect, normal mood Skin exam: Present: warm, dry, intact, normal color. Absent: rash Course Vital Signs 03/16/21 03/16/21 19:02 20:54 Temperature 97.7 F Pulse Rate 69 82 Respiratory 20 16 Rate Blood Pressure 147/75 138/63 O2 Sat by Pulse 97 95 Oximetry Medical Decision Making - Medical Decision Making 85-year-old female with right middle quadrant pain starting shortly after cystoscopy. Labs, 1 and normal saline, 4mg morphine, CT of the abdomen and pelvis ordered. Labs unremarkable, CT negative for any acute process. Upon reevaluation patient states that she is feeling much better and is ready to go home. Case discussed with Dr. Sommers, patient discharge home with follow-up to primary care and urologist. - Lab Data Result diagrams: 03/16/21 19:32 03/16/21 19:32 Lab Results 03/16/21 03/16/21 03/16/21 Range/Units 19:32 19:32 19:32 WBC 8.2 (3.8-10.6) k/uL RBC 4.16 (3.80-5.40) m/uL Hgb 13.0 (11.4-16.0) gm/dL Hct 37.5 (34.0-46.0) % MCV 90.0 (80.0-100.0) fL MCH 31.3 (25.0-35.0) pg MCHC 34.8 (31.0-37.0) g/dL RDW 13.0 (11.5-15.5) % Plt Count 196 (150-450) k/uL MPV 7.0 Neutrophils % 76 % Lymphocytes % 17 % Monocytes % 5 % Eosinophils % 1 % Basophils % 0 % Neutrophils # 6.2 (1.3-7.7) k/uL Lymphocytes # 1.4 (1.0-4.8) k/uL Monocytes # 0.4 (0-1.0) k/uL Eosinophils # 0.1 (0-0.7) k/uL Basophils # 0.0 (0-0.2) k/uL Sodium 136 L (137-145) mmol/L Potassium 4.0 (3.5-5.1) mmol/L Chloride 102 (98-107) mmol/L Carbon Dioxide 25 (22-30) mmol/L Anion Gap 9 mmol/L BUN 17 (7-17) mg/dL Creatinine 1.04 (0.52-1.04) mg/dL Est GFR (CKD-EPI)AfAm 56 (>60 ml/min/1.73 sqM) Est GFR (CKD-EPI)NonAf 49 (>60 ml/min/1.73 sqM) Glucose 128 H (74-99) mg/dL Plasma Lactic Acid Asa 2.1 H* (0.7-2.0) mmol/L Calcium 9.1 (8.4-10.2) mg/dL Total Bilirubin 0.3 (0.2-1.3) mg/dL AST 22 (14-36) U/L ALT 11 (4-34) U/L Alkaline Phosphatase 71 (38-126) U/L Total Protein 6.4 (6.3-8.2) g/dL Albumin 4.1 (3.5-5.0) g/dL Amylase 62 (30-110) U/L Lipase 83 (23-300) U/L - Radiology Data Radiology results: report reviewed, image reviewed CT of the abdomen and pelvis: There is hydronephrosis and hydroureter ureter with periureteral edema and left-sided perinephric edema which is new compared to old computed tomography scan. No obstructing calculus seen. This could relate to pyelonephritis. Disposition Clinical Impression: Abdominal pain Disposition: HOME SELF-CARE Condition: Stable Instructions (If sedation given, give patient instructions): Abdominal Pain (ED) Additional Instructions: Please return to the Emergency Department if symptoms worsen or any other concerns. Continue at home medications as prescribed. Follow-up with primary care and urologist as scheduled. Is patient prescribed a controlled substance at d/c from ED?: No Referrals: Jane Bartlett MD [Primary Care Provider] - 1-2 days Time of Disposition: 21:21
--- NOTE | 2021-03-16 20:17 | CT ---
EXAMINATION TYPE: CT abdomen pelvis wo con DATE OF EXAM: 03/16/2021 COMPARISON: 03/03/2019 HISTORY: Abdominal pain CT DLP: 579.4 mGycm Automated exposure control for dose reduction was used. Images obtained from the diaphragm to the floor the pelvis with no contrast. Lung bases are clear of infiltrate. There is no pleural effusion. There is no pericardial effusion. T here is small hiatal hernia. There are clips from cholecystectomy. Liver and spleen are intact. The bile ducts are not dilated. Th ere is no pancreatic mass. There is no evidence of adrenal mass. Kidneys have normal size. There is bilateral hydronephrosis. Th ere is cortical thinning upper pole right kidney with calcification. There is mild lateral hydrourete r. There is left side. The nephric edema. No ureteral calculus seen. Bladder distends smoothly. There is no inguinal hernia. There is no free fluid in the pelvis. Lumbar vertebra have fairly normal alignment. There is degenerative disc space narrowing throughout t he lumbar spine. There is no compression fracture. There is a mild degenerative first-degree L4-5 spo ndylolisthesis. The bony pelvis is intact. The hip joints are intact. There is mild bilateral periure teral edema. There is no retroperitoneal adenopathy. Abdominal aorta is atheromatous. There is 2 cm c ortical cyst lower pole left kidney. There is no mesenteric edema. There is no ascites or free air. There is no bowel obstruction. IMPRESSION: There is hydronephrosis and hydroureter with periureteral edema and left side perinephric edema which is new compared to old CT scan. No obstructing calculus seen. This could relate to pyelonephritis.
[2021-03-16 20:57] VITALS: BP 138/63; PULSE 82; RESP 16
== END 2021-03-16 21:40 | disposition home or self-care (01) ==
LOC: EC 19:00
DX: R10.31 Right lower quadrant pain (principal); E78.5 Hyperlipidemia, unspecified; I10 Essential (primary) hypertension; F03.90 Unspecified dementia, unspecified severity, without behavioral disturbance, psychotic disturbance, mood disturbance, and anxiety; F41.9 Anxiety disorder, unspecified; F17.200 Nicotine dependence, unspecified, uncomplicated; Z87.442 Personal history of urinary calculi; Z98.890 Other specified postprocedural states
CPT/HCPCS: 80053; 82150; 83605; 83690; 85025; 74176; 99284; 96374; J2270

== ENCOUNTER 2021-04-26 18:25 | Inpatient (IN) | payer MEDICARE ==
[2021-04-26] MEDS ORDERED: SODIUM CHLORIDE 0.9% 500 ML 500 ML IV STA (19:14)
[2021-04-26 19:32] LABS: Basophils % (A) 0 %; Eosinophils # (A) 0.3 k/uL (0-0.7); Eosinophils % (A) 4 %; HCT 33.8 % (34.0-46.0); HGB 11.4 gm/dL (11.4-16.0); Lymphocytes # (A) 0.5 k/uL (1.0-4.8); Lymphocytes % (A) 6 %; MCH 30.3 pg (25.0-35.0); MCHC 33.6 g/dL (31.0-37.0); MCV 90.1 fL (80.0-100.0); Mean Platelet Volume 7.1; Monocytes # (A) 0.3 k/uL (0-1.0); Monocytes % (A) 3 %; Neutrophils # (A) 7.3 k/uL (1.3-7.7); Neutrophils % (A) 84 %; Platelet Count 272 k/uL (150-450); RBC 3.75 m/uL (3.80-5.40); RDW 13.6 % (11.5-15.5); WBC 8.7 k/uL (3.8-10.6)
--- NOTE | 2021-04-26 19:37 | ED ---
General Adult HPI - General Chief complaint: Recheck/Abnormal Lab/Rx Stated complaint: COTY Time Seen by Provider: 04/26/21 19:03 Source: patient, family Mode of arrival: wheelchair Limitations: physical limitation - History of Present Illness Initial comments: 86 year-old female patient with history of bladder and ureter cancer presents to the emergency department for evaluation of generalized weakness, shortness of breath, and dizziness. Patient went to have her infusion a few days ago and was found to have a UTI. They started her on Macrobid. Over the next couple days she developed the above symptoms and the urologist (Dr. Gagnon) office thought it may have been a reaction to the medication so they told her to stop it. Symptoms seemed to worsen today so they presented here for further evaluation. Patient states she has no appetite. Did have an episode of vomiting yesterday. Denies any fever or chills. States she gets short of breath especially with activity. Denies any cough or congestion. Denies focal weakness states it is general. St ates she did have some chest pain when she got here but it resolved. States shows has back pain, there has been no change. Patient denies any recent rash, cough, abdominal pain, diarrhea, constipation, numbness, tingling, headache, visual changes, or any other complaints. - Related Data Home Medications Medication Instructions Recorded Confirmed HYDROcodone/APAP 7.5-325MG [[place] 1 tab PO BID 05/17/20 03/16/21 7.5-325] Potassium Chloride [Klor-Con 10] 10 meq PO DAILY 05/17/20 03/16/21 Sertraline HCl [Zoloft] 100 mg PO DAILY 05/17/20 03/16/21 Simvastatin [Zocor] 20 mg PO DAILY 05/17/20 03/16/21 Triamterene/Hydrochlorothiazid 1 tab PO DAILY 05/17/20 03/16/21 [Triamterene-Hctz 37.5-25 mg Tb] Aspirin EC [Ecotrin] 325 mg PO DAILY 04/26/21 04/26/21 Ibuprofen [Motrin Ib] 200 mg PO Q8H PRN 04/26/21 04/26/21 Multivitamins, Thera [Multivitamin 1 tab PO DAILY 04/26/21 04/26/21 (formulary)] Potassium Gluconate 99 mg PO DAILY 04/26/21 04/26/21 Allergies Allergy/AdvReac Type Severity Reaction Status Date / Time Sulfa (Sulfonamide Allergy Unknown Verified 04/26/21 21:44 Antibiotics) Review of Systems ROS Statement: Those systems with pertinent positive or pertinent negative responses have been documented in the HPI. ROS Other: All systems not noted in ROS Statement are negative. 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 History of Any Multi-Drug Resistant Organisms: None Reported Past Surgical History: Appendectomy Additional Past Surgical History / Comment(s): Cystoscopies/R ureteral stents, lithotripsy, bilateral cataract removals. Past Anesthesia/Blood Transfusion Reactions: Postoperative Nausea & Vomiting (PONV) Additional Past Anesthesia/Blood Transfusion Reaction / Comment(s): Post op nausea and pain Past Psychological History: Anxiety Smoking Status: Former smoker Past Alcohol Use History: None Reported Past Drug Use History: None Reported - Past Family History Father Family Medical History: Coronary Artery Disease (CAD), CVA/TIA Mother Family Medical History: No Reported History Additional Family Medical History / Comment(s): Mother was healthy and lived until 89yrs. General Exam Limitations: physical limitation General appearance: alert, in no apparent distress, other (This is a well- developed, well-nourished elderly female patient in no acute distress. Vital signs upon presentation are temperature 100.2F, pulse 89, respirations 18, blood pressure 117/61, pulse ox 95% on room air.) Eye exam: Present: normal appearance, PERRL, EOMI. Absent: scleral icterus, conjunctival injection, periorbital swelling ENT exam: Present: normal exam, normal oropharynx, mucous membranes moist Respiratory exam: Present: normal lung sounds bilaterally, other (Tachypnea). Absent: respiratory distress, wheezes, rales, rhonchi, stridor Cardiovascular Exam: Present: regular rate, normal rhythm, normal heart sounds. Absent: systolic murmur, diastolic murmur, rubs, gallop, clicks GI/Abdominal exam: Present: soft, normal bowel sounds. Absent: distended, tenderness, guarding, rebound, rigid Neurological exam: Present: alert, oriented X3, CN II-XII intact Psychiatric exam: Present: normal affect, normal mood Skin exam: Present: warm, dry, intact, normal color. Absent: rash Course Vital Signs 04/26/21 04/26/21 04/26/21 18:27 19:07 20:53 Temperature 98.5 F 100.0 F H 98.8 F Pulse Rate 89 87 Respiratory 18 20 Rate Blood Pressure 117/61 136/57 O2 Sat by Pulse 95 93 L Oximetry EKG Findings - EKG Comments: EKG Findings:: EKG obtained at 1839 shows normal sinus rhythm with a ventricular rate of 88, MO interval 134, QRS duration 74, QT 406, QTc 491. No evidence of ST elevation or depression. Medical Decision Making - Medical Decision Making 86-year-old female patient presented for evaluation of weakness, dyspnea, and dizziness. Did have an episode of chest pain upon arrival which did resolve. She is being treated outpatient for urinary tract infection with Macrobid when she started having symptoms. Physical examination did reveal soft nontender abdomen. Lungs are clear to auscultation. EKG showed sinus rhythm. Labs reviewed and did reveal normal white blood cell count at 8.7. Potassium is 3.0, magnesium 2.1, troponin 0.0-8. Urinalysis did show cloudy appearance with trace protein, moderate blood, large leukocyte esterase, 23 red blood cells, greater than 182 white blood cells, few bacteria, and rare mucous. We will admit to the hospital for serial troponins. IV antibiotics for UTI, and further evaluation by cardiology. I did discuss findings, results, and plan with the patient and her son, they're both agreeable. My attending is Dr. Nina. - Lab Data Result diagrams: 04/26/21 19:22 04/26/21 19:22 Lab Results 04/26/21 04/26/21 04/26/21 Range/Units 19:22 19:22 19:22 WBC 8.7 (3.8-10.6) k/uL RBC 3.75 L (3.80-5.40) m/uL Hgb 11.4 (11.4-16.0) gm/dL Hct 33.8 L (34.0-46.0) % MCV 90.1 (80.0-100.0) fL MCH 30.3 (25.0-35.0) pg MCHC 33.6 (31.0-37.0) g/dL RDW 13.6 (11.5-15.5) % Plt Count 272 (150-450) k/uL MPV 7.1 Neutrophils % 84 % Lymphocytes % 6 % Monocytes % 3 % Eosinophils % 4 % Basophils % 0 % Neutrophils # 7.3 (1.3-7.7) k/uL Lymphocytes # 0.5 L (1.0-4.8) k/uL Monocytes # 0.3 (0-1.0) k/uL Eosinophils # 0.3 (0-0.7) k/uL Basophils # 0.0 (0-0.2) k/uL PT 9.7 (9.0-12.0) sec INR 0.9 (<1.2) APTT 24.9 (22.0-30.0) sec Sodium 135 L (137-145) mmol/L Potassium 3.0 L (3.5-5.1) mmol/L Chloride 97 L (98-107) mmol/L Carbon Dioxide 28 (22-30) mmol/L Anion Gap 10 mmol/L BUN 27 H (7-17) mg/dL Creatinine 0.93 (0.52-1.04) mg/dL Est GFR (CKD-EPI)AfAm 64 (>60 ml/min/1.73 sqM) Est GFR (CKD-EPI)NonAf 55 (>60 ml/min/1.73 sqM) Glucose 112 H (74-99) mg/dL Plasma Lactic Acid [place] (0.7-2.0) mmol/L Calcium 9.0 (8.4-10.2) mg/dL Magnesium 2.1 (1.6-2.3) mg/dL Total Bilirubin 0.3 (0.2-1.3) mg/dL AST 17 (14-36) U/L ALT 13 (4-34) U/L Alkaline Phosphatase 80 (38-126) U/L Troponin I (0.000-0.034) ng/mL Total Protein 6.4 (6.3-8.2) g/dL Albumin 3.8 (3.5-5.0) g/dL Urine Color Urine Appearance (Clear) Urine pH (5.0-8.0) Ur Specific [place] (1.001-1.035) Urine Protein (Negative) Urine Glucose (UA) (Negative) Urine Ketones (Negative) Urine Blood (Negative) Urine Nitrite (Negative) Urine Bilirubin (Negative) Urine Urobilinogen (<2.0) mg/dL Ur Leukocyte Esterase (Negative) Urine RBC (0-5) /hpf Urine WBC (0-5) /hpf Ur Squamous Epith Cells (0-4) /hpf Urine Bacteria (None) /hpf Hyaline Casts (0-2) /lpf Urine Mucus (None) /hpf 04/26/21 04/26/21 04/26/21 Range/Units 19:22 19:22 20:56 WBC (3.8-10.6) k/uL RBC (3.80-5.40) m/uL Hgb (11.4-16.0) gm/dL Hct (34.0-46.0) % MCV (80.0-100.0) fL MCH (25.0-35.0) pg MCHC (31.0-37.0) g/dL RDW (11.5-15.5) % Plt Count (150-450) k/uL MPV Neutrophils % % Lymphocytes % % Monocytes % % Eosinophils % % Basophils % % Neutrophils # (1.3-7.7) k/uL Lymphocytes # (1.0-4.8) k/uL Monocytes # (0-1.0) k/uL Eosinophils # (0-0.7) k/uL Basophils # (0-0.2) k/uL PT (9.0-12.0) sec INR (<1.2) APTT (22.0-30.0) sec Sodium (137-145) mmol/L Potassium (3.5-5.1) mmol/L Chloride (98-107) mmol/L Carbon Dioxide (22-30) mmol/L Anion Gap mmol/L BUN (7-17) mg/dL Creatinine (0.52-1.04) mg/dL Est GFR (CKD-EPI)AfAm (>60 ml/min/1.73 sqM) Est GFR (CKD-EPI)NonAf (>60 ml/min/1.73 sqM) Glucose (74-99) mg/dL Plasma Lactic Acid [place] 1.0 (0.7-2.0) mmol/L Calcium (8.4-10.2) mg/dL Magnesium (1.6-2.3) mg/dL Total Bilirubin (0.2-1.3) mg/dL AST (14-36) U/L ALT (4-34) U/L Alkaline Phosphatase (38-126) U/L Troponin I 0.028 (0.000-0.034) ng/mL Total Protein (6.3-8.2) g/dL Albumin (3.5-5.0) g/dL Urine Color Yellow Urine Appearance Cloudy H (Clear) Urine pH 5.5 (5.0-8.0) Ur Specific [place] 1.013 (1.001-1.035) Urine Protein Trace H (Negative) Urine Glucose (UA) Negative (Negative) Urine Ketones Negative (Negative) Urine Blood Moderate H (Negative) Urine Nitrite Negative (Negative) Urine Bilirubin Negative (Negative) Urine Urobilinogen <2.0 (<2.0) mg/dL Ur Leukocyte Esterase Large H (Negative) Urine RBC 23 H (0-5) /hpf Urine WBC >182 H (0-5) /hpf Ur Squamous Epith Cells <1 (0-4) /hpf Urine Bacteria Few H (None) /hpf Hyaline Casts 1 (0-2) /lpf Urine Mucus Rare H (None) /hpf - Radiology Data Radiology results: report reviewed, image reviewed Two-view x-ray of the chest is obtained. Report was reviewed in its entirety. Impression by Dr. Chin shows cardiomegaly and chronic changes of small tiny left pleural effusion and persistent lingular opacity favoring scarring. No new focal infiltrate clearly seen. Disposition Clinical Impression: Dyspnea, UTI (urinary tract infection), Weakness, Chest pain Disposition: ADMITTED IP TO THIS [facility] Condition: Serious Referrals: Jane Bartlett MD [Primary Care Provider] - 1-2 days Decision to Admit Reason: Admit from EC Decision Date: 04/26/21 Decision Time: 21:47
[2021-04-26 19:41] LABS: Albumin 3.8 g/dL (3.5-5.0); Magnesium 2.1 mg/dL (1.6-2.3); Total Bilirubin 0.3 mg/dL (0.2-1.3); Total Protein 6.4 g/dL (6.3-8.2)
[2021-04-26 19:44] LABS: INR 0.9 (<1.2)
[2021-04-26 19:45] LABS: Partial Thromboplastin Time 24.9 sec (22.0-30.0); Prothrombin Time 9.7 sec (9.0-12.0)
--- NOTE | 2021-04-26 19:58 | XR ---
EXAMINATION TYPE: XR chest 2V DATE OF EXAM: 04/26/2021 COMPARISON: Chest x-ray May 18, 2020 HISTORY: Weakness and shortness of breath TECHNIQUE: Frontal and lateral views of the chest are obtained. FINDINGS: Chronic parenchymal changes with patchy lingular opacity remains present . Small to tiny le ft pleural effusion again seen.. The cardiac silhouette size remains enlarged. The osseous structu res remain demineralized. IMPRESSION: Cardiomegaly and chronic changes with small to tiny left pleural effusion and persistent lingular opacity favoring scarring. No new focal infiltrate clearly seen.
[2021-04-26] MEDS ORDERED: POTASSIUM CHLORIDE ER 20 MEQ TAB.ER PO STA (20:28)
[2021-04-26 21:17] LABS: Appearance,Urine Cloudy (Clear); Bacteria,Urine Few /hpf; Bilirubin,Urine Negative (Negative); Blood,Urine Moderate (Negative); Color,Urine Yellow; Glucose,Urine (UA) Negative (Negative); Hyaline Casts,Urine 1 /lpf (0-2); Ketones,Urine Negative (Negative); Leukocyte Esterase,Urine Large (Negative); Mucus,Urine Rare /hpf; Nitrite,Urine Negative (Negative); PH, Urine 5.5 (5.0-8.0); Protein,Urine Trace (Negative); RBC,Urine 23 /hpf (0-5); Specific Gravity,Urine 1.013 (1.001-1.035); Squamous Epithelial Cell,Urine <1 /hpf (0-4); Urobilinogen,Urine <2.0 mg/dL (<2.0); WBC,Urine >182 /hpf (0-5)
[2021-04-26] MEDS ORDERED: cefTRIAXone IN SWFI 1,000 MG/10 ML SYRINGE IVP STA (21:32)
[2021-04-26] MEDS ORDERED: NALOXONE 0.4 MG/ML 1 ML VIAL IV PRN (21:45)
[2021-04-26] MEDS ORDERED: ACETAMINOPHEN TAB 325 MG TAB PO PRN (21:45)
[2021-04-26] MEDS ORDERED: ONDANSETRON 4 MG/2 ML VIAL IVP PRN (21:45)
[2021-04-26] MEDS ORDERED: MORPHINE SULFATE 2 MG/ML SYRINGE IV PRN (22:00)
[2021-04-27 04:43] VITALS: RESP 16
[2021-04-27] MEDS ORDERED: IBUPROFEN 200 MG TAB PO PRN (08:51)
[2021-04-27] MEDS ORDERED: HYDROcodone/APAP 7.5-325MG 1 EACH TAB PO PRN (08:51)
[2021-04-27] MEDS ORDERED: NON FORMULARY DRUG (Potassium Gluconate [Potassium Gluconate] 99 MG Tablet.Er) PO SCH (09:00)
[2021-04-27] MEDS ORDERED: ASPIRIN 325 MG TAB PO SCH (09:00)
[2021-04-27 09:56] LABS: Basophils % (A) 0 %; Eosinophils # (A) 0.3 k/uL (0-0.7); Eosinophils % (A) 5 %; HCT 32.5 % (34.0-46.0); HGB 10.6 gm/dL (11.4-16.0); Lymphocytes # (A) 0.4 k/uL (1.0-4.8); Lymphocytes % (A) 7 %; MCH 29.9 pg (25.0-35.0); MCHC 32.7 g/dL (31.0-37.0); MCV 91.5 fL (80.0-100.0); Mean Platelet Volume 7.1; Monocytes # (A) 0.2 k/uL (0-1.0); Monocytes % (A) 4 %; Neutrophils % (A) 82 %; Platelet Count 254 k/uL (150-450); RBC 3.55 m/uL (3.80-5.40); RDW 13.3 % (11.5-15.5); WBC 6.1 k/uL (3.8-10.6)
[2021-04-27 10:01] LABS: African American GFR (CKD) 82 (>60 ml/min/1.73 sqM); Anion Gap 6 mmol/L; Blood Urea Nitrogen 26 mg/dL (7-17); Calcium 8.9 mg/dL (8.4-10.2); Carbon Dioxide 28 mmol/L (22-30); Chloride 103 mmol/L (98-107); Glucose 124 mg/dL (74-99); Non-African American GFR(CKD) 72 (>60 ml/min/1.73 sqM); Potassium 3.4 mmol/L (3.5-5.1); Sodium 137 mmol/L (137-145)
[2021-04-27] MEDS: SERTRALINE 100 MG TAB PO SCH (10:07)
[2021-04-27] MEDS: POTASSIUM CHLORIDE ER 10 MEQ TAB.ER.PRT PO SCH (10:07)
[2021-04-27] MEDS: ATORVASTATIN 10 MG TAB PO SCH (10:07)
[2021-04-27] MEDS: MULTIVITAMINS, THERA 1 EACH TAB PO SCH (10:07)
[2021-04-27] MEDS ORDERED: POTASSIUM CHLORIDE ER 20 MEQ TAB.ER PO STA (11:25)
--- NOTE | 2021-04-27 12:57 | P.CRDCN ---
History of Present Illness History of present illness: 86 year-old female patient with a past medical history of hypertension, dyslipidemia, former nicotine dependence, bladder and ureter cancer presents to the emergency department for evaluation of generalized weakness, shortness of breath, and dizziness. 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 We are being consulted for chest pain. Patient states that she's been getting frequent irrigations with her urologist.Patient went to have her scheduled appointment early this week and was found to have a UTI. She was unable to get her irrigation procedure at that time. They started her on Macrobid. Patient states on Friday night she took a total of 2 doses of her antibiotic that day, she started to experience some dizziness and weakness. morning she had another dose of her antibiotic, she again started feeling dizzy, felt weak and did have an episode of nausea and vomiting. She also had an episode of shortness of breath with activity. Dr. Gagnon, her urologist, thought it may have been a reaction to the medication so they told her to stop it. Symptoms seemed to worsen today so they presented here for further evaluation. Her son brought her to the emergency department. Her breathing has much improved. She denies any further dizziness, lightheadedness, shortness of breath. She denies ever having any chest pain. She denies fever, chills, palpitations, syncope or loss of consciousness. She denies history of ID, coronary artery disease, stroke, diabetes. She denies family history of cardiac disease. She is a former smoker, she started smoking at age 13 and recently quit last year. Denies alcohol use. Denies symptoms of orthopnea or PND. DIAGNOSTICS EKG on arrival 04/26 revealed sinus rhythm, heart rate 88, ST depression in leads V3V6 Repeat EKG this 04/27 AM - normal sinus rhythm, heart rate 70, some mild ST depression in leads V3-V6 Telemetry tracings indicate sinus mechanism HR Chest xray chronic parenchymal changes with patchy lingular opacity remains present. Tiny left pleural effusion. Cardiac silhouette enlarged. Laboratory reviewed, WBC 6.1, hemoglobin 10.6, platelets 254, sodium 137, potassium 3.4, BUN 26, serum creatinine 0.75, troponins negative 3, UA positive for UTI REVIEW OF SYSTEMS At the time of my exam: CONSTITUTIONAL: Denies fever or chills. CARDIOVASCULAR: +shortness of breath Denies chest pain, orthopnea, PND or palpitations. RESPIRATORY: Denies cough. GASTROINTESTINAL: Denies abdominal pain, diarrhea, constipation, nausea or vomiting. MUSCULOSKELETAL: Denies myalgias. NEUROLOGIC: Denies numbness, tingling, headacbe or weakness. ENDOCRINE: Denies fatigue, weight change, polydipsia or polyurina. GENITOURINARY: Denies burning, hematuria or urgency with micturation. HEMATOLOGIC: Denies history of anemia or bleeding. PHYSICAL EXAMINATION Blood pressure 103/67 heart rate 74 afebrile and maintaining oxygen saturation 98% 2L nasal cannula CONSTITUTIONAL: No apparent distress. HEENT: Head is normocephalic. Pupils are equal, round. Sclerae anicteric. Mucous membranes of the mouth are moist. No JVD. No carotid bruit. CHEST EXAMINATION: Lungs are clear to auscultation. No chest wall tenderness is noted on palpation or with deep breathing. HEART EXAMINATION: Regular rate and rhythm. S1, S2 heard. No murmurs, gallops or rub. ABDOMEN: Soft, nontender. Positive bowel sounds. EXTREMITIES: 2+ peripheral pulses, no lower extremity edema and no calf tenderness. SKIN: intact NEUROLOGIC EXAMINATION: Patient is awake, alert and oriented x3. ASSESSMENT Shortness of breath, resolved Dizziness and Weakness, resolved Hypertension Dyslipidemia Former nicotine dependence History of bladder and ureter cancer PLAN Patient denies any chest pain. An acute coronary event has been ruled out with no EKG evidence of ischemia and negative cardiac enzymes. Echocardiogram obtained, and reviewed by Dr. Lassiter. No acute findings on echocardiogram. Patient with normal EF. From cardiology perspective, no further cardiac testing at this time. We will follow the patient as needed. Please reconsult if further questions or concerns. Nurse Practitioner note has been reviewed, I agree with a documented findings and plan of care. Patient was seen and examined. 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 History of Any Multi-Drug Resistant Organisms: None Reported Past Surgical History: Appendectomy Additional Past Surgical History / Comment(s): Cystoscopies/R ureteral stents, lithotripsy, bilateral cataract removals. Past Anesthesia/Blood Transfusion Reactions: Postoperative Nausea & Vomiting (PONV) Additional Past Anesthesia/Blood Transfusion Reaction / Comment(s): Post op nausea and pain Past Psychological History: Anxiety Additional Psychological History / Comment(s): Pt resides alone. She uses no ass istive device. She drives. She has children who check on her often. Smoking Status: Former smoker Past Alcohol Use History: None Reported Additional Past Alcohol Use History / Comment(s): Pt started smoking in 1949 and is a ppd smoker. Past Drug Use History: None Reported - Past Family History Father Family Medical History: Coronary Artery Disease (CAD), CVA/TIA Mother Family Medical History: No Reported History Additional Family Medical History / Comment(s): Mother was healthy and lived until 89yrs. Medications and Allergies Home Medications Medication Instructions Recorded Confirmed Type HYDROcodone/APAP 7.5-325MG [[place] 1 tab PO BID PRN 05/17/20 04/26/21 History 7.5-325] Potassium Chloride [Klor-Con 10] 10 meq PO DAILY 05/17/20 04/26/21 History Sertraline HCl [Zoloft] 100 mg PO DAILY 05/17/20 04/26/21 History Simvastatin [Zocor] 20 mg PO DAILY 05/17/20 04/26/21 History Triamterene/Hydrochlorothiazid 1 tab PO DAILY 05/17/20 04/26/21 History [Triamterene-Hctz 37.5-25 mg Tb] Aspirin EC [Ecotrin] 325 mg PO DAILY 04/26/21 04/26/21 History Ibuprofen [Motrin Ib] 200 mg PO Q8H PRN 04/26/21 04/26/21 History Multivitamins, Thera [Multivitamin 1 tab PO DAILY 04/26/21 04/26/21 History (formulary)] Potassium Gluconate 99 mg PO DAILY 04/26/21 04/26/21 History Allergies Allergy/AdvReac Type Severity Reaction Status Date / Time Sulfa (Sulfonamide Allergy Unknown Verified 04/26/21 21:44 Antibiotics) Physical Exam Vitals: Vital Signs Temp Pulse Pulse Resp BP BP Pulse Ox 04/27/21 04:42 98.4 F 74 16 103/67 98 04/26/21 23:00 98.1 F 81 18 121/73 97 04/26/21 22:49 98.5 F 75 18 112/88 96 04/26/21 20:53 98.8 F 87 20 136/57 93 L 04/26/21 19:07 100.0 F H 04/26/21 18:27 98.5 F 89 18 117/61 95 Intake and Output 04/26/21 04/27/21 04/27/21 22:59 06:59 14:59 Other: # Voids 1 Weight 61.235 kg 61.235 kg Results 04/27/21 09:08 04/27/21 09:08 Cardiac Enzymes 04/26/21 04/26/21 04/26/21 Range/Units 19:22 19:22 22:38 AST 17 (14-36) U/L Troponin I 0.028 0.021 (0.000-0.034) ng/mL 04/27/21 Range/Units 01:29 AST (14-36) U/L Troponin I 0.015 (0.000-0.034) ng/mL Coagulation 04/26/21 Range/Units 19:22 PT 9.7 (9.0-12.0) sec APTT 24.9 (22.0-30.0) sec CBC 04/26/21 04/27/21 Range/Units 19:22 09:08 WBC 8.7 6.1 (3.8-10.6) k/uL RBC 3.75 L 3.55 L (3.80-5.40) m/uL Hgb 11.4 10.6 L (11.4-16.0) gm/dL Hct 33.8 L 32.5 L (34.0-46.0) % Plt Count 272 254 (150-450) k/uL Comprehensive Metabolic Panel 04/26/21 04/27/21 Range/Units 19:22 09:08 Sodium 135 L 137 (137-145) mmol/L Potassium 3.0 L 3.4 L (3.5-5.1) mmol/L Chloride 97 L 103 (98-107) mmol/L Carbon Dioxide 28 28 (22-30) mmol/L BUN 27 H 26 H (7-17) mg/dL Creatinine 0.93 0.75 (0.52-1.04) mg/dL Glucose 112 H 124 H (74-99) mg/dL Calcium 9.0 8.9 (8.4-10.2) mg/dL AST 17 (14-36) U/L ALT 13 (4-34) U/L Alkaline Phosphatase 80 (38-126) U/L Total Protein 6.4 (6.3-8.2) g/dL Albumin 3.8 (3.5-5.0) g/dL Current Medications Generic Name Dose Route Start Last Admin Trade Name Freq PRN Reason Stop Dose Admin Acetaminophen 650 mg 04/26/21 21:45 Acetaminophen Tab 325 Mg Tab PO Q6HR PRN Mild Pain or Fever > 100.5 Hydrocodone Bitart/Acetaminophen 1 each 04/27/21 08:51 Hydrocodone/Apap 7.5-325mg 1 Each Tab PO BID PRN Moderate Pain Aspirin 325 mg 04/27/21 09:00 04/27/21 10:07 Aspirin 325 Mg Tab PO 325 mg DAILY MARLENA Administration Atorvastatin Calcium 10 mg 04/27/21 09:00 04/27/21 10:07 Atorvastatin 10 Mg Tab PO 10 mg DAILY MARLENA Administration Ceftriaxone Sodium 1 gm/ 50 mls @ 100 mls/hr 04/27/21 09:00 04/27/21 09:09 Sodium Chloride IVPB 100 mls/hr Q24HR MARLENA Administration Ibuprofen 200 mg 04/27/21 08:51 Ibuprofen 200 Mg Tab PO Q8H PRN Mild Pain Morphine Sulfate 2 mg 04/26/21 22:00 Morphine Sulfate 2 Mg/Ml Syringe IV Q4HR PRN Severe Pain Multivitamins 1 each 04/27/21 09:00 04/27/21 10:07 Multivitamins, [place]ra 1 Each Tab PO 1 each DAILY MARLENA Administration Naloxone HCl 0.2 mg 04/26/21 21:45 Naloxone 0.4 Mg/Ml 1 Ml Vial IV Q2M PRN Opioid Reversal Non-Formulary Medication 99 mg 04/27/21 09:00 04/27/21 10:07 Potassium Gluconate [Potassium Gluconate] PO Not Given DAILY MARLENA Ondansetron HCl 4 mg 04/26/21 21:45 Ondansetron 4 Mg/2 Ml Vial IVP Q8HR PRN Nausea And Vomiting Potassium Chloride 10 meq 04/27/21 09:00 04/27/21 10:07 Potassium Chloride Er 10 Meq Tab.Er.Prt PO 10 meq DAILY MARLENA Administration Sertraline HCl 100 mg 04/27/21 09:00 04/27/21 10:07 Sertraline 100 Mg Tab PO 100 mg DAILY MARLENA Administration Intake and Output 04/26/21 04/27/21 04/27/21 22:59 06:59 14:59 Other: # Voids 1 Weight 61.235 kg 61.235 kg 04/27/21 09:08 04/27/21 09:08
--- NOTE | 2021-04-27 13:01 | ECHOF ---
Referral Reason:LV function MEASUREMENTS -------- HEIGHT: 162.6 cm WEIGHT: 61.2 kg BP: IVSd: 1.1 cm (0.6 - 1.1) LVIDd: 4.1 cm (3.9 - 5.3) LVPWd: 1.1 cm (0.6 - 1.1) IVSs: 1.4 cm LVIDs: 2.2 cm LVPWs: 1.7 cm LA Diam: 3.2 cm (2.7 - 3.8) LAESV Index (A-L): 24.69 ml/m Ao Diam: 2.6 cm (2.0 - 3.7) AV Cusp: 1.3 cm (1.5 - 2.6) LA Diam: 4.2 cm (2.7 - 3.8) MV EXCURSION: 22.213 mm (> 18.000) MV EF SLOPE: 157 mm/s (70 - 150) EPSS: 0.9 cm MV E Asher: 0.81 m/s MV DecT: 234 ms MV A Asher: 1.13 m/s MV E/A Ratio: 0.72 AV maxP.47 mmHg AV meanP.48 mmHg RAP: 5.00 mmHg RVSP: 28.02 mmHg FINDINGS -------- Sinus rhythm. This was a technically good study. LV size, wall thickness and systolic function are normal, with an EF greater than 55%. The left eliecer tricular size is normal. The right ventricle is normal in size. Normal LA size by volume 22+/-6 ml/m2. The right atrial size is normal. There is mild aortic stenosis present. Peak/mean gradient across the Aortic Valve is 23.47mmHg / 9. 48mmHg. Mild mitral regurgitation is present. Mild tricuspid regurgitation present. Right ventricular systolic pressure is normal at < 35 mmHg. There is no pulmonic regurgitation present. The aortic root size is normal. Echo free space represents a pericardial fat pad. CONCLUSIONS -------- 1. LV size, wall thickness and systolic function are normal, with an EF greater than 55%. 2. The left ventricular size is normal. 3. The right ventricle is normal in size. 4. Normal LA size by volume 22+/-6 ml/m2. 5. The right atrial size is normal. 6. There is mild aortic stenosis present. 7. Peak/mean gradient across the Aortic Valve is 23.47mmHg / 9.48mmHg. 8. Mild mitral regurgitation is present. 9. Mild tricuspid regurgitation present. 10. The aortic root size is normal. 11. Echo free space represents a pericardial fat pad. [employer] NATURAL GAS OPERATOR: Ruma Castanon RDCS
--- NOTE | 2021-04-27 16:08 | P.HPIM ---
History of Present Illness H&P Date: 04/27/21 Chief Complaint: Generalized weakness, and shortness of breath and dizziness Ms. 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 Patient states that she has history of bladder cancer and she gets frequent irrigations, once a week done by her urologist. So patient had as scheduled appointment, got radiation therapy done and was found to have a UTI. So the patient was started on Macrobid, patient states that she took 2 doses of her antibiotic and she felt nauseous and threw up once. Later on she had mild difficulty in breathing. When she called Dr. Pak, she was advised to stop taking that medication. For the past 1 day patient's symptoms of weakness have worsened so her son brought into the emergency department. On review of systems patient denies having any fevers chills or rigors. No chest pain or palpitations. No cough. She denies having any sick contacts. No headaches, blurring of vision or focal weakness of her extremities. In the ED at the time of admission patient had a T-max of 100, heart rate 80s to 90s, respiratory rate 18, blood pressure 117/61 saturating at 95% on room air. She had a chest x-ray showing cardiomegaly and tiny left pleural effusion and persistent lingular opacity favoring scarring. No new focal infiltrate. EKG done shows normal sinus rhythm. On reviewing her labs white count of 8.7, h emoglobin 11.4, platelets 272. Sodium 135, potassium 3, chloride 97, bicarbonate 28, Bun 27, creatinine 0.90. Urine analysis is negative for nitrites and positive for large leukocyte esterase and more than 180 wbc's and 23 RBCs. Urine analysis was obtained and patient was started on ceftriaxone and admitted for further management. Review of Systems REVIEW OF SYSTEMS: CONSTITUTIONAL: Generalized weakness and dizziness HEENT: No headache, no neck stiffness, no blurring of vision CARDIOVASCULAR: no chest pain or palpitations PULMONARY: No cough or difficulty in breathing GASTROINTESTINAL: No Abdominal pain NEUROLOGICAL: No weakness of extremities HEMATOLOGICAL: Denies any bleeding or petechiae. GENITOURINARY: As per HPI MUSCULOSKELETAL/RHEUMATOLOGICAL: Denies any joint pain, swelling, or any muscle pain. ENDOCRINE: Denies polyuria polydipsia or heat or cold intolerance The rest of the 14-point review of systems is negative. Past Medical History Past Medical History: Dementia, Hearing Disorder / Deafness, Hyperlipidemia, Hypertension Additional Past Medical History / Comment(s): R ureteral neoplasm with stentings/radiation treatments with last radiation tx 05/08/20, nephrolithiasis with surgery and pt passed on her own, nephritis, UTIs, chronic low back pain, t orn R rotator cuff with limited ROM, bilateral tinnitis, pt/son do not recall diagnosis of COPD/bronchitis/pneumonia as documented in old medical record. History of Any Multi-Drug Resistant Organisms: None Reported Past Surgical History: Appendectomy Additional Past Surgical History / Comment(s): Cystoscopies/R ureteral stents, lithotripsy, bilateral cataract removals. Past Anesthesia/Blood Transfusion Reactions: Postoperative Nausea & Vomiting (PONV) Additional Past Anesthesia/Blood Transfusion Reaction / Comment(s): Post op nausea and pain Past Psychological History: Anxiety Additional Psychological History / Comment(s): Pt resides alone. She uses no assistive device. She drives. She has children who check on her often. Smoking Status: Former smoker Past Alcohol Use History: None Reported Additional Past Alcohol Use History / Comment(s): Pt started smoking in 1949 and is a ppd smoker. Past Drug Use History: None Reported - Past Family History Father Family Medical History: Coronary Artery Disease (CAD), CVA/TIA Mother Family Medical History: No Reported History Additional Family Medical History / Comment(s): Mother was healthy and lived until 89yrs. Medications and Allergies Home Medications Medication Instructions Recorded Confirmed Type HYDROcodone/APAP 7.5-325MG [[place] 1 tab PO BID PRN 05/17/20 04/26/21 History 7.5-325] Potassium Chloride [Klor-Con 10] 10 meq PO DAILY 05/17/20 04/26/21 History Sertraline HCl [Zoloft] 100 mg PO DAILY 05/17/20 04/26/21 History Simvastatin [Zocor] 20 mg PO DAILY 05/17/20 04/26/21 History Triamterene/Hydrochlorothiazid 1 tab PO DAILY 05/17/20 04/26/21 History [Triamterene-Hctz 37.5-25 mg Tb] Aspirin EC [Ecotrin] 325 mg PO DAILY 04/26/21 04/26/21 History Ibuprofen [Motrin Ib] 200 mg PO Q8H PRN 04/26/21 04/26/21 History Multivitamins, Thera [Multivitamin 1 tab PO DAILY 04/26/21 04/26/21 History (formulary)] Potassium Gluconate 99 mg PO DAILY 04/26/21 04/26/21 History Allergies Allergy/AdvReac Type Severity Reaction Status Date / Time Sulfa (Sulfonamide Allergy Unknown Verified 04/26/21 21:44 Antibiotics) Physical Exam Vitals: Vital Signs Temp Pulse Pulse Resp BP BP Pulse Ox 04/27/21 04:42 98.4 F 74 16 103/67 98 04/26/21 23:00 98.1 F 81 18 121/73 97 04/26/21 22:49 98.5 F 75 18 112/88 96 04/26/21 20:53 98.8 F 87 20 136/57 93 L 04/26/21 19:07 100.0 F H 04/26/21 18:27 98.5 F 89 18 117/61 95 Intake and Output 04/26/21 04/27/21 04/27/21 22:59 06:59 14:59 Other: # Voids 1 Weight 61.235 kg 61.235 kg PHYSICAL EXAMINATION: GENERAL: no acute distress. Elderly female sitting up in the bed HEENT: Pupils are round and equally reacting to light. EOMI. No scleral icterus. No conjunctival pallor. CARDIOVASCULAR: S1 and S2 present. No murmurs, rubs, or gallops. PULMONARY: Bilateral breath sounds positive. Diminished at the lower lung bases. No wheezes or crackles ABDOMEN: Soft,non -tender, normal bowel sounds. No guarding or rigidity. No CVA tenderness or suprapubic tenderness MUSCULOSKELETAL: No joint swelling or deformity. EXTREMITIES: No edema NEUROLOGICAL: Gross neurological examination did not reveal any focal deficits. SKIN:No rash Results CBC & Chem 7: 04/27/21 09:08 04/27/21 09:08 Labs: Abnormal Lab Results - Last 24 Hours (Table) 04/26/21 04/26/21 04/26/21 Range/Units 19:22 19:22 20:56 RBC 3.75 L (3.80-5.40) m/uL Hgb (11.4-16.0) gm/dL Hct 33.8 L (34.0-46.0) % Lymphocytes # 0.5 L (1.0-4.8) k/uL Sodium 135 L (137-145) mmol/L Potassium 3.0 L (3.5-5.1) mmol/L Chloride 97 L (98-107) mmol/L BUN 27 H (7-17) mg/dL Glucose 112 H (74-99) mg/dL Urine Appearance Cloudy H (Clear) Urine Protein Trace H (Negative) Urine Blood Moderate H (Negative) Ur Leukocyte Esterase Large H (Negative) Urine RBC 23 H (0-5) /hpf Urine WBC >182 H (0-5) /hpf Urine Bacteria Few H (None) /hpf Urine Mucus Rare H (None) /hpf 04/27/21 04/27/21 Range/Units 09:08 09:08 RBC 3.55 L (3.80-5.40) m/uL Hgb 10.6 L (11.4-16.0) gm/dL Hct 32.5 L (34.0-46.0) % Lymphocytes # 0.4 L (1.0-4.8) k/uL Sodium (137-145) mmol/L Potassium 3.4 L (3.5-5.1) mmol/L Chloride (98-107) mmol/L BUN 26 H (7-17) mg/dL Glucose 124 H (74-99) mg/dL Urine Appearance (Clear) Urine Protein (Negative) Urine Blood (Negative) Ur Leukocyte Esterase (Negative) Urine RBC (0-5) /hpf Urine WBC (0-5) /hpf Urine Bacteria (None) /hpf Urine Mucus (None) /hpf Microbiology - Last 24 Hours (Table) 04/26/21 20:56 Urine Culture - Preliminary Urine,Voided Thrombosis Risk Factor Assmnt - Choose All That Apply Any of the Below Risk Factors Present?: Yes Each Risk Factor Represents 2 Points: Malignancy Each Risk Factor Represents 3 Points: Age 75 years or older Other congenital or acquired thrombophilia - If yes, enter type in comment: No Thrombosis Risk Factor Assessment Total Risk Factor Score: 5 Thrombosis Risk Factor Assessment Level: High Risk Assessment and Plan Assessment: ASSESSMENT Urinary tract infection secondary to E. coli Shortness of breath and dizziness resolved History of bladder cancer status post radiation therapy Hypovolemic hyponatremia Hypokalemia Mild elevation in troponins Hypertension Hyperlipidemia Former smoker PLAN Patient's urine culture obtained 2 days back was positive for E. coli continue with ceftriaxone Patient's serial troponins and EKGs negative, cardiology on board and following Patient's dizziness and shortness of breath has resolved and she is back to her baseline Patient's home medications have been restarted Urology has been consulted Further recommendations to follow depending on the progress of the patient
[2021-04-27] MEDS: ENOXAPARIN 40 MG/0.4 ML SYRINGE SQ SCH (17:17)
[2021-04-27] MEDS: PANTOPRAZOLE 40 MG TABLET PO SCH (17:17)
--- NOTE | 2021-04-27 18:30 | P.GSCN ---
History of Present Illness Consult date: 04/27/21 Reason for Consult: UTI Requesting physician: Lala Renae History of present illness: The patient is an 86-year-old white female well known to Dr. Gagnon. She was diagnosed with bladder carcinoma in situ in 2009 and treated with intravesical BCG. 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 This has recurred on one occasion and has been treated endoscopically. In February 2021 she underwent cystoscopy, bilateral retrograde pyelograms, and right ureteroscopy. No abnormalities were seen. However, because of persistent positive urine cytology it was decided to treat her with weekly intravesical BCG for 6 weeks. She received her first treatment on 04/17/2021. She was seen back in the office on April 24, and appeared to have a UTI at that time. A urine culture was sent, and she was treated with Macrobid 100 mg twice a day. After starting the Macrobid, she developed nausea and subsequently weakness. She was thus brought to the emergency room and admitted. The urine culture showed pansensitive E. coli. Review of Systems - Constitutional Reports weakness, Denies chills, Denies fever - Respiratory Reports dyspnea Past Medical History Past Medical History: Dementia, Hearing Disorder / Deafness, Hyperlipidemia, Hypertension Additional Past Medical History / Comment(s): R ureteral neoplasm with stentings/radiation treatments with last radiation tx 05/08/20, nephrolithiasis with surgery and pt passed on her own, nephritis, UTIs, chronic low back pain, torn R rotator cuff with limited ROM, bilateral tinnitis, pt/son do not recall diagnosis of COPD/bronchitis/pneumonia as documented in old medical record. History of Any Multi-Drug Resistant Organisms: None Reported Past Surgical History: Appendectomy Additional Past Surgical History / Comment(s): Cystoscopies/R ureteral stents, lithotripsy, bilateral cataract removals. Past Anesthesia/Blood Transfusion Reactions: Postoperative Nausea & Vomiting (PONV) Additional Past Anesthesia/Blood Transfusion Reaction / Comm: Post op nausea and pain Past Psychological History: Anxiety Additional Psychological History / Comment(s): Pt resides alone. She uses no assistive device. She drives. She has children who check on her often. Smoking Status: Former smoker Past Alcohol Use History: None Reported Additional Past Alcohol Use History / Comment(s): Pt started smoking in 1949 and is a ppd smoker. Past Drug Use History: None Reported - Past Family History Father Family Medical History: Coronary Artery Disease (CAD), CVA/TIA Mother Family Medical History: No Reported History Additional Family Medical History / Comment(s): Mother was healthy and lived until 89yrs. Medications and Allergies Home Medications Medication Instructions Recorded Confirmed Type HYDROcodone/APAP 7.5-325MG [[place] 1 tab PO BID PRN 05/17/20 04/26/21 History 7.5-325] Potassium Chloride [Klor-Con 10] 10 meq PO DAILY 05/17/20 04/26/21 History Sertraline HCl [Zoloft] 100 mg PO DAILY 05/17/20 04/26/21 History Simvastatin [Zocor] 20 mg PO DAILY 05/17/20 04/26/21 History Triamterene/Hydrochlorothiazid 1 tab PO DAILY 05/17/20 04/26/21 History [Triamterene-Hctz 37.5-25 mg Tb] Aspirin EC [Ecotrin] 325 mg PO DAILY 04/26/21 04/26/21 History Ibuprofen [Motrin Ib] 200 mg PO Q8H PRN 04/26/21 04/26/21 History Multivitamins, Thera [Multivitamin 1 tab PO DAILY 04/26/21 04/26/21 History (formulary)] Potassium Gluconate 99 mg PO DAILY 04/26/21 04/26/21 History Allergies Allergy/AdvReac Type Severity Reaction Status Date / Time Sulfa (Sulfonamide Allergy Unknown Verified 04/26/21 21:44 Antibiotics) Surgical - Exam Vital Signs Temp Pulse Resp BP Pulse Ox 98.5 F 89 18 117/61 95 04/26/21 18:27 04/26/21 18:27 04/26/21 18:27 04/26/21 18:27 04/26/21 18:27 - General well developed, well nourished, no distress - Respiratory normal respiratory effort - Abdomen Abdomen: soft, non tender, no guarding, no rigid, no rebound - Psychiatric oriented to time, oriented to person, oriented to place, speech is normal, memory intact Results - Labs 04/27/21 09:08 04/27/21 09:08 Abnormal Lab Results - Last 24 Hours (Table) 04/26/21 04/26/21 04/26/21 Range/Units 19:22 19:22 20:56 RBC 3.75 L (3.80-5.40) m/uL Hgb (11.4-16.0) gm/dL Hct 33.8 L (34.0-46.0) % Lymphocytes # 0.5 L (1.0-4.8) k/uL Sodium 135 L (137-145) mmol/L Potassium 3.0 L (3.5-5.1) mmol/L Chloride 97 L (98-107) mmol/L BUN 27 H (7-17) mg/dL Glucose 112 H (74-99) mg/dL Urine Appearance Cloudy H (Clear) Urine Protein Trace H (Negative) Urine Blood Moderate H (Negative) Ur Leukocyte Esterase Large H (Negative) Urine RBC 23 H (0-5) /hpf Urine WBC >182 H (0-5) /hpf Urine Bacteria Few H (None) /hpf Urine Mucus Rare H (None) /hpf 04/27/21 04/27/21 Range/Units 09:08 09:08 RBC 3.55 L (3.80-5.40) m/uL Hgb 10.6 L (11.4-16.0) gm/dL Hct 32.5 L (34.0-46.0) % Lymphocytes # 0.4 L (1.0-4.8) k/uL Sodium (137-145) mmol/L Potassium 3.4 L (3.5-5.1) mmol/L Chloride (98-107) mmol/L BUN 26 H (7-17) mg/dL Glucose 124 H (74-99) mg/dL Urine Appearance (Clear) Urine Protein (Negative) Urine Blood (Negative) Ur Leukocyte Esterase (Negative) Urine RBC (0-5) /hpf Urine WBC (0-5) /hpf Urine Bacteria (None) /hpf Urine Mucus (None) /hpf Microbiology - Last 24 Hours (Table) 04/26/21 20:56 Urine Culture - Preliminary Urine,Voided Diabetes panel 04/26/21 04/27/21 Range/Units 19:22 09:08 Sodium 135 L 137 (137-145) mmol/L Potassium 3.0 L 3.4 L (3.5-5.1) mmol/L Chloride 97 L 103 (98-107) mmol/L Carbon Dioxide 28 28 (22-30) mmol/L BUN 27 H 26 H (7-17) mg/dL Creatinine 0.93 0.75 (0.52-1.04) mg/dL Glucose 112 H 124 H (74-99) mg/dL Calcium 9.0 8.9 (8.4-10.2) mg/dL AST 17 (14-36) U/L ALT 13 (4-34) U/L Alkaline Phosphatase 80 (38-126) U/L Total Protein 6.4 (6.3-8.2) g/dL Albumin 3.8 (3.5-5.0) g/dL Calcium panel 04/26/21 04/27/21 Range/Units 19:22 09:08 Calcium 9.0 8.9 (8.4-10.2) mg/dL Albumin 3.8 (3.5-5.0) g/dL Pituitary panel 04/26/21 04/27/21 Range/Units 19:22 09:08 Sodium 135 L 137 (137-145) mmol/L Potassium 3.0 L 3.4 L (3.5-5.1) mmol/L Chloride 97 L 103 (98-107) mmol/L Carbon Dioxide 28 28 (22-30) mmol/L BUN 27 H 26 H (7-17) mg/dL Creatinine 0.93 0.75 (0.52-1.04) mg/dL Glucose 112 H 124 H (74-99) mg/dL Calcium 9.0 8.9 (8.4-10.2) mg/dL Adrenal panel 04/26/21 04/27/21 Range/Units 19:22 09:08 Sodium 135 L 137 (137-145) mmol/L Potassium 3.0 L 3.4 L (3.5-5.1) mmol/L Chloride 97 L 103 (98-107) mmol/L Carbon Dioxide 28 28 (22-30) mmol/L BUN 27 H 26 H (7-17) mg/dL Creatinine 0.93 0.75 (0.52-1.04) mg/dL Glucose 112 H 124 H (74-99) mg/dL Calcium 9.0 8.9 (8.4-10.2) mg/dL Total Bilirubin 0.3 (0.2-1.3) mg/dL AST 17 (14-36) U/L ALT 13 (4-34) U/L Alkaline Phosphatase 80 (38-126) U/L Total Protein 6.4 (6.3-8.2) g/dL Albumin 3.8 (3.5-5.0) g/dL Assessment and Plan (1) UTI (urinary tract infection) Current Visit: Yes Status: Acute Code(s): N39.0 - URINARY TRACT INFECTION, SITE NOT SPECIFIED SNOMED Code(s): 04205306 Plan: The patient is currently receiving ceftriaxone. She is feeling much better. From my standpoint, she may be discharged home on a seven-day course of oral antibiotics. She will resume intravesical BCG treatment next week or the follo wing week. Please notify me if I can be of any further assistance. Time with Patient: Less than 30
[2021-04-27 19:06] LABS: African American GFR (CKD) 68 (>60 ml/min/1.73 sqM); Anion Gap 10 mmol/L; Blood Urea Nitrogen 26 mg/dL (7-17); Calcium 8.8 mg/dL (8.4-10.2); Carbon Dioxide 25 mmol/L (22-30); Chloride 102 mmol/L (98-107); Glucose 159 mg/dL (74-99); Non-African American GFR(CKD) 59 (>60 ml/min/1.73 sqM); Potassium 3.1 mmol/L (3.5-5.1); Sodium 137 mmol/L (137-145)
[2021-04-28 07:25] LABS: Basophils % (A) 0 %; Eosinophils # (A) 0.5 k/uL (0-0.7); Eosinophils % (A) 10 %; HCT 32.8 % (34.0-46.0); Lymphocytes # (A) 0.7 k/uL (1.0-4.8); Lymphocytes % (A) 15 %; MCH 30.7 pg (25.0-35.0); MCHC 33.5 g/dL (31.0-37.0); MCV 91.7 fL (80.0-100.0); Mean Platelet Volume 7.1; Monocytes # (A) 0.2 k/uL (0-1.0); Monocytes % (A) 5 %; Neutrophils # (A) 3.1 k/uL (1.3-7.7); Neutrophils % (A) 67 %; Platelet Count 241 k/uL (150-450); RBC 3.58 m/uL (3.80-5.40); WBC 4.7 k/uL (3.8-10.6)
[2021-04-28 07:47] LABS: African American GFR (CKD) 80 (>60 ml/min/1.73 sqM); Anion Gap 7 mmol/L; Blood Urea Nitrogen 23 mg/dL (7-17); Calcium 9.1 mg/dL (8.4-10.2); Carbon Dioxide 29 mmol/L (22-30); Chloride 104 mmol/L (98-107); Glucose 94 mg/dL (74-99); Non-African American GFR(CKD) 69 (>60 ml/min/1.73 sqM); Potassium 4.1 mmol/L (3.5-5.1); Sodium 140 mmol/L (137-145)
[2021-04-28] MEDS: ATORVASTATIN 10 MG TAB PO SCH (08:29)
[2021-04-28] MEDS: ASPIRIN 81 MG PO SCH (08:29)
[2021-04-28] MEDS: ENOXAPARIN 40 MG/0.4 ML SYRINGE SQ SCH (08:29)
[2021-04-28] MEDS: PANTOPRAZOLE 40 MG TABLET PO SCH (08:29)
[2021-04-28] MEDS: MULTIVITAMINS, THERA 1 EACH TAB PO SCH (08:29)
[2021-04-28] MEDS: POTASSIUM CHLORIDE ER 10 MEQ TAB.ER.PRT PO SCH (08:30)
[2021-04-28] MEDS: SERTRALINE 100 MG TAB PO SCH (08:30)
--- NOTE | 2021-04-28 16:38 | P.PN ---
Subjective Ms. 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 Patient states that she has history of bladder cancer and she gets frequent irrigations, once a week done by her urologist. So patient had as scheduled appointment, got radiation therapy done and was found to have a UTI. So the patient was started on Macrobid, patient states that she took 2 doses of her antibiotic and she felt nauseous and threw up once. Later on she had mild difficulty in breathing. When she called Dr. Pak, she was advised to stop taking that medication. For the past 1 day patient's symptoms of weakness have worsened so her son brought andi reynao the emergency department. On review of systems patient denies having any fevers chills or rigors. No chest pain or palpitations. No cough. She denies having any sick contacts. No headaches, blurring of vision or focal weakness of her extremities. In the ED at the time of admission patient had a T-max of 100, heart rate 80s to 90s, respiratory rate 18, blood pressure 117/61 saturating at 95% on room air. She had a chest x-ray showing cardiomegaly and tiny left pleural effusion and pers istent lingular opacity favoring scarring. No new focal infiltrate. EKG done shows normal sinus rhythm. On reviewing her labs white count of 8.7, hemoglobin 11.4, platelets 272. Sodium 135, potassium 3, chloride 97, bicarbonate 28, Bun 27, creatinine 0.90. Urine analysis is negative for nitrites and positive for large leukocyte esterase and more than 180 wbc's and 23 RBCs. Urine analysis was obtained and patient was started on ceftriaxone and admitted for further management. 04/28/2021 Patient has gram-negative bacilli in the urine finalization of the cultures is still pending. Continue with present antibiotics awaiting cultures. No further intervention from cardiology perspective. Patient has negative cardiac enzymes. Echocardiogram is within normal limits PHYSICAL EXAMINATION: GENERAL: no acute distress. Elderly female sitting up in the bed HEENT: Pupils are round and equally reacting to light. EOMI. No scleral icterus. No conjunctival pallor. CARDIOVASCULAR: S1 and S2 present. No murmurs, rubs, or gallops. PULMONARY: Bilateral breath sounds positive. Diminished at the lower lung bases. No wheezes or crackles ABDOMEN: Soft,non -tender, normal bowel sounds. No guarding or rigidity. No CVA tenderness or suprapubic tenderness MUSCULOSKELETAL: No joint swelling or deformity. EXTREMITIES: No edema NEUROLOGICAL: Gross neurological examination did not reveal any focal deficits. SKIN:No rash ASSESSMENT Urinary tract infection continue with Rocephin awaiting cultures Shortness of breath and dizziness resolved: Probably secondary to UTI -Chest pressure: Ruled out acute coronary syndromes, cardiology evaluated the patient. History of bladder cancer status post radiation therapy Hypovolemic hyponatremia Hypokalemia Mild elevation in troponins Hypertension Hyperlipidemia Former smoker Objective - Vital Signs Vital signs: Vital Signs Temp 98.1 F 04/28/21 11:08 Pulse 69 04/28/21 11:08 Resp 16 04/28/21 11:08 BP 101/64 04/28/21 11:08 Pulse Ox 94 L 04/28/21 11:08 Intake & Output 04/27/21 04/28/21 04/28/21 18:59 06:59 18:59 Intake Total 1060 Balance 1060 Intake: Intake, IV Titration 100 Amount cefTRIAXone 1 gm In 100 Sodium Chloride 0.9% 50 ml @ 100 mls/hr IVPB Q24HR [facility] Rx#:[id number] Oral 960 Other: Voiding Method Toilet Toilet Toilet # Voids 5 2 - Labs CBC & Chem 7: 04/28/21 06:45 04/28/21 06:45 Labs: Abnormal Lab Results - Last 24 Hours (Table) 04/27/21 04/28/21 04/28/21 Range/Units 18:27 06:45 06:45 RBC 3.58 L (3.80-5.40) m/uL Hgb 11.0 L (11.4-16.0) gm/dL Hct 32.8 L (34.0-46.0) % Lymphocytes # 0.7 L (1.0-4.8) k/uL Potassium 3.1 L (3.5-5.1) mmol/L BUN 26 H 23 H (7-17) mg/dL Glucose 159 H (74-99) mg/dL Microbiology - Last 24 Hours (Table) 04/26/21 20:56 Urine Culture - Preliminary Urine,Voided Gram Neg Bacilli
[2021-04-29] MEDS: SERTRALINE 100 MG TAB PO SCH (08:45)
[2021-04-29] MEDS: ATORVASTATIN 10 MG TAB PO SCH (08:45)
[2021-04-29] MEDS: MULTIVITAMINS, THERA 1 EACH TAB PO SCH (08:45)
[2021-04-29] MEDS: PANTOPRAZOLE 40 MG TABLET PO SCH (08:45)
[2021-04-29] MEDS: POTASSIUM CHLORIDE ER 10 MEQ TAB.ER.PRT PO SCH (08:45)
[2021-04-29] MEDS: ASPIRIN 81 MG PO SCH (08:45)
[2021-04-29] MEDS: ENOXAPARIN 40 MG/0.4 ML SYRINGE SQ SCH (08:46)
[2021-04-29 11:27] VITALS: BP 117/65; PULSE 66; TEMP 97.8
--- NOTE | 2021-04-29 12:31 | P.DS ---
Providers Date of admission: 04/28/21 16:27 Attending physician: Tea Nolan MD Consults: 04/26/21 21:46 Consult Physician Routine Consulting Provider: [facility] Consult Reason/Comments: Dyspnea; Weakness; Chest pain Do you want consulting provider notified?: Yes 04/27/21 08:59 Consult Physician Urgent Consulting Provider: Bjorn Gagnon Consult Reason/Comments: recent tx in office for UTI/ ??bladder Ca per pt Do you want consulting provider notified?: Yes Primary care physician: [facility] Course: Ms. 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 Patient states that she has history of bladder cancer and she gets frequent irrigations, once a week done by her urologist. So patient had as scheduled appointment, got radiation therapy done and was found to have a UTI. So the patient was started on Macrobid, patient states that she took 2 doses of her antibiotic and she felt nauseous and threw up once. Later on she had mild difficulty in breathing. When she called Dr. Pak, she was advised to stop taking that medication. For the past 1 day patient's symptoms of weakness have worsened so her son brought into the emergency department. On review of systems patient denies having any fevers chills or rigors. No chest pain or palpitations. No cough. She denies having any sick contacts. No headaches, blurring of vision or focal weakness of her extremities. In the ED at the time of admission patient had a T-max of 100, heart rate 80s to 90s, respiratory rate 18, blood pressure 117/61 saturating at 95% on room air. She had a chest x-ray showing cardiomegaly and tiny left pleural effusion and persistent lingular opacity favoring scarring. No new focal infiltrate. EKG done shows normal sinus rhythm. On reviewing her labs white count of 8.7, hemoglobin 11.4, platelets 272. Sodium 135, potassium 3, chloride 97, bicarbonate 28, Bun 27, creatinine 0.90. Urine analysis is negative for nitrites and positive for large leukocyte esterase and more than 180 wbc's and 23 RBCs. Urine analysis was obtained and patient was started on ceftriaxone and admitted for further management. 04/28/2021 Patient has gram-negative bacilli in the urine finalization of the cultures is still pending. Continue with present antibiotics awaiting cultures. No further intervention from cardiology perspective. Patient has negative cardiac enzymes. Echocardiogram is within normal limits 04/29/2021 Patient has E. coli in the urine which is pansensitive patient will be discharged on Ceftin for 4 more days to complete a 7 day of therapy for pyelonephritis/sepsis. Patient was on diuretics for blood pressure her blood pressure remained low during this hospitalization. Diuretics were being held for last 3 days. Patient is not a good candidate for diuretics. Patient's hypertension need to be treated conservatively to avoid any falls in her situation. Patient is not a good candidate for diuretic therapy if needed and if patient's blood pressure goal above 1 60 / 90 probably wouldn't benefit from benefit from calcium channel caden PHYSICAL EXAMINATION: GENERAL: no acute distress. Elderly female sitting up in the bed HEENT: Pupils are round and equally reacting to light. EOMI. No scleral icterus. No conjunctival pallor. CARDIOVASCULAR: S1 and S2 present. No murmurs, rubs, or gallops. PULMONARY: Bilateral breath sounds positive. Diminished at the lower lung bases. No wheezes or crackles ABDOMEN: Soft,non -tender, normal bowel sounds. No guarding or rigidity. No CVA tenderness or suprapubic tenderness MUSCULOSKELETAL: No joint swelling or deformity. EXTREMITIES: No edema NEUROLOGICAL: Gross neurological examination did not reveal any focal deficits. SKIN:No rash ASSESSMENT Sepsis secondary to urinary tract infection possible pyelonephritis, pansensitive E. coli, being discharged on for more days of Ceftin Shortness of breath and dizziness resolved: Probably secondary to UTI and hypotension -Chest pressure: Ruled out acute coronary syndromes, cardiology evaluated the patient. History of bladder cancer status post radiation therapy Hypovolemic hyponatremia: Secondary to diuretics improved Hypokalemia Mild elevation in troponins Hypertension Hyperlipidemia Former smoker Patient Condition at Discharge: Serious Plan - Discharge Summary New Discharge Prescriptions: New Cefuroxime Axetil [Ceftin] 500 mg PO BID 4 Days #8 tab Discontinued Triamterene/Hydrochlorothiazid [Triamterene-Hctz 37.5-25 mg Tb] 1 tab PO DAILY No Action Simvastatin [Zocor] 20 mg PO DAILY Sertraline HCl [Zoloft] 100 mg PO DAILY Potassium Chloride [Klor-Con 10] 10 meq PO DAILY HYDROcodone/APAP 7.5-325MG [Binger 7.5-325] 1 tab PO BID PRN PRN Reason: Pain Ibuprofen [Motrin Ib] 200 mg PO Q8H PRN PRN Reason: Pain Aspirin EC [Ecotrin] 325 mg PO DAILY Potassium Gluconate 99 mg PO DAILY Multivitamins, Thera [Multivitamin (formulary)] 1 tab PO DAILY Discharge Medication List HYDROcodone/APAP 7.5-325MG [Binger 7.5-325] 1 tab PO BID PRN 05/17/20 [History] Potassium Chloride [Klor-Con 10] 10 meq PO DAILY 05/17/20 [History] Sertraline HCl [Zoloft] 100 mg PO DAILY 05/17/20 [History] Simvastatin [Zocor] 20 mg PO DAILY 05/17/20 [History] Aspirin EC [Ecotrin] 325 mg PO DAILY 04/26/21 [History] Ibuprofen [Motrin Ib] 200 mg PO Q8H PRN 04/26/21 [History] Multivitamins, Thera [Multivitamin (formulary)] 1 tab PO DAILY 04/26/21 [History] Potassium Gluconate 99 mg PO DAILY 04/26/21 [History] Cefuroxime Axetil [Ceftin] 500 mg PO BID 4 Days #8 tab 04/29/21 [Rx] Follow up Appointment(s)/Referral(s): Jane Bartlett MD [Primary Care Provider] - 3 Days Discharge Disposition: HOME SELF-CARE
== END 2021-04-29 13:35 | disposition home or self-care (01) | DRG 872 ==
LOC: EC 18:25 → 5NMEDONC 21:35 → OBSVTOIN 04-28 16:27
PROVIDERS: ADMIT Internal Medicine; ATTEND Internal Medicine
DX: A41.9 Sepsis, unspecified organism (principal); E87.1 Hypo-osmolality and hyponatremia; N39.0 Urinary tract infection, site not specified; B96.20 Unspecified Escherichia coli [E. coli] as the cause of diseases classified elsewhere; E78.5 Hyperlipidemia, unspecified; E86.1 Hypovolemia; T50.2X5A Adverse effect of carbonic-anhydrase inhibitors, benzothiadiazides and other diuretics, initial encounter; I95.9 Hypotension, unspecified; R79.89 Other specified abnormal findings of blood chemistry; E87.6 Hypokalemia; F03.90 Unspecified dementia, unspecified severity, without behavioral disturbance, psychotic disturbance, mood disturbance, and anxiety; F41.9 Anxiety disorder, unspecified; I11.9 Hypertensive heart disease without heart failure; H91.90 Unspecified hearing loss, unspecified ear; Z79.82 Long term (current) use of aspirin; Z79.899 Other long term (current) drug therapy; Z85.51 Personal history of malignant neoplasm of bladder; Z85.54 Personal history of malignant neoplasm of ureter; Z87.442 Personal history of urinary calculi; Z87.891 Personal history of nicotine dependence; Z92.3 Personal history of irradiation; Z98.42 Cataract extraction status, left eye; Z98.41 Cataract extraction status, right eye
CPT/HCPCS: 36415; 71046; 80048; 80053; 81001; 83605; 83735; 83880; 84484; 85025; 85610; 85730; 87077; 87086; 87186; 93005; 93306; 94760; 99285

== ENCOUNTER → 2022-02-22 | Outpatient (CLI) | payer MEDICARE ==
--- NOTE | 2022-02-22 15:28 | CT ---
EXAMINATION TYPE: CT urogram wo/w con DATE OF EXAM: 02/22/2022 COMPARISON: 03/16/2021 INDICATION: Hematuria with history of right ureteral cancer DLP: 2051 mGycm, Automated exposure control for dose reduction was used. CONTRAST: 80 ml mL of Isovue 300. Study performed without Oral Contrast TECHNIQUE: Axial images were obtained from above the diaphragm to the pubic rami in the axial plane a t 5 mm thick sections. Reconstructed images are reviewed on the computer in the coronal plane. FINDINGS: Limited CT sections are obtained the lung bases. There is a mass of the right lung base measuring 8. 8 x 6.6 cm. This is new from comparison. Metastatic lesion should be considered. There appears to be an enlarged lymph node measuring 2.7 cm with necrotic center. Series [address] ABDOMEN: Liver: Normal. There is a 1.1 cm hypodensity lateral to the right lobe liver. Series 6 image 28. Spleen: Normal. There is a hypodensity extending from the posterior spleen measuring 2.1 cm. A hypode nsity is revealed to the spleen which is nonspecific and measures 1.6 cm. These are new. Pancreas: Normal Adrenal glands: Adrenal glands are large. The left measures 2.8 cm. The right measures 3.4 cm. This i s new from comparison. Gallbladder: Surgically absent Kidneys: No masses are evident. No hydronephrosis is present. No cysts are present. No suspicious mass is identified. There is a calcification in the superior pole right kidney measuring 0.3 cm. Rajat ical thinning is adjacent. Delayed images were obtained through the kidneys. There is symmetrical excretion. Superior right santos l cortex is thinned. No hydronephrosis or hydroureter is evident. Ureters follow a normal caliber cou rse and contour to the urinary bladder. No filling defects within the ureters are identified. Urinary bladder fills normally without intraluminal or extrarenal defect. Three-D reconstructed images from a separate computer reviewed. There is symmetrical excretion. No discrete filling defect is identifie d. Right ureter is slightly more prominent on the left Aorta: Vascular calcification is within the aorta. Inferior vena cava: Normal. CT PELVIS: Loops of bowel within the abdomen and pelvis are normal. This study is lateral contrast limiting bowel evaluation. Appendix: Not visualized. No dilated tubular structure or inflammatory change evident. Urinary bladder: Normal. Genitourinary structures: Uterus appears normal. Adnexa are normal Osseous structures: No suspicious lytic or sclerotic lesions. Degenerative disc changes are within th e lumbar spine. Some sclerotic endplate changes are present. IMPRESSIONS: 1. Large lung base mass suspicious for metastasis. 2. Additional scattered enlarged densities with central hypodensity may be necrotic lymph nodes withi n the upper abdomen and within the retrocrural space. 3. Suspicious for local recurrence within the ureters is not identified.
== END | disposition home or self-care (01) ==
LOC: RADCTMAIN 12:17
PROVIDERS: ATTEND Urology
DX: R91.8 Other nonspecific abnormal finding of lung field (principal); Z85.54 Personal history of malignant neoplasm of ureter
CPT/HCPCS: 82565; 84520; 74178; 36415; 74400; Q9967

== ENCOUNTER → 2022-03-11 | Outpatient (CLI) | payer MEDICARE ==
--- NOTE | 2022-03-12 04:07 | MR ---
EXAMINATION TYPE: MR brain wo/w con DATE OF EXAM: 03/11/2022 COMPARISON: None HISTORY: Lung cancer. CONTRAST: Standard multiplanar, multisequence MRI departmental protocol images were obtained without contrast a nd with 5.5 mL intravenous Gadavist gadolinium contrast. There is diffuse cerebral cortical atrophy. There is no mass effect or midline shift. No sign of intr acranial hemorrhage. There is ring enhancing 1 cm lesion in the cortex of the left occipital lobe. Di ffusion images show no evidence of an acute infarct. There is some mild age related periventricular w shaunna matter signal changes. There are scattered foci of increased signal in the internal capsule bila terally up to 5 mm. Portal numbers approximately 10. Cerebellum is intact. Sella turcica appears norm al. There is slight thinning of the corpus callosum. There is some mild patchy increased signal withi n the sharon. IMPRESSION: Ring-enhancing lesion in the left occipital lobe is suspicious for metastatic disease. Age-related atrophy and white matter signal changes. Pontine signal changes consistent with microvasc ular ischemia.
== END | disposition home or self-care (01) ==
LOC: RADMRIMAIN 20:27
PROVIDERS: ATTEND Internal Medicine Hematology & Oncology
DX: C34.90 Malignant neoplasm of unspecified part of unspecified bronchus or lung (principal); G31.9 Degenerative disease of nervous system, unspecified; G93.89 Other specified disorders of brain
CPT/HCPCS: 70553; A9585